=== PATIENT | male | born 1985 | race Caucasian/White ===

== ENCOUNTER → 2016-06-08 | Outpatient (CLI) | payer OTHER ==
[~2016-06-08] MED LIST: GABA300C3 PO
--- NOTE | 2016-06-15 01:55 | ECWPNPC ---
PATIENT NAME: ALEX GLYNN : 1985 GENDER: MALE VISIT DATE: 06/08/2016 DISCHARGE DATE: 06/08/16 1313 VISIT LOCKED DATE TIME: PHYSICIAN: BECKY FUNEZ RESOURCE: BECKY FUNEZ REASON FOR APPOINTMENT 1. TESITCULAR PAIN HISTORY OF PRESENT ILLNESS HISTORY OF PRESENT ILLNESS: PAIN THE PATIENT DESCRIBES THE PAIN... 30 YEAR OLD MALE PATIENT WITH HISTORY OF CHRONIC TESTICULAR PAIN. PATIENT DESCRIBES THE PAIN SHARP, THROBBING, SORE, WITH THE PAIN COMING AND GOING WITH A PAIN SCORE OF 3/10. PATIENT IS CURRENTLY USING GABAPENTIN TO HELP WITH THE NEUROPATHIC PAIN IN THE GROIN. MR. GLYNN REPORTS WANTING TO MOVE FORWARD WITH THE DCS TRIAL FAST POSSIBLE. PATIENT REPORTS HAVING BOTH MRI'S AND PSYCHOLOGICAL EVALUATION DONE FOR THE TRIAL TO BE DONE. PATIENT DENIES UNEXPLAINABLE WEIGHT LOSS, FEVER, CHILLS, NEW CHANGES ON HIS URINARY OR BOWEL CONTROL. FALL RISK SCREENING: SCREENING :NO FALLS IN THE PAST YEAR CURRENT MEDICATIONS TAKING GABAPENTIN 400 MG TABLET 1 CAPSULE ORALLY FOUR TIMES DAILY FOR PAIN MDD4 NOT-TAKING IBUPROFEN 800 MG TABLET 1 TABLET ORALLY THREE TIMES A DAY, NOTES: PRN NOT-TAKING FISH OIL 1000 MG CAPSULE 1 CAPSULE ORALLY DAILY NOT-TAKING LEVAQUIN 500 MG TABLET 1 TABLET ORALLY ONCE A DAY NOT-TAKING CELEBREX 100 MG CAPSULE 1 CAPSULE ORALLY TWICE A DAY NOT-TAKING SUMATRIPTAN SUCCINATE 25 MG TABLET ORALLY NOT-TAKING TYLENOL 325 MG TABLET 1 TABLET NEEDED ORALLY EVERY 6 HRS NOT-TAKING KETOROLAC TROMETHAMINE 10 MG TABLET 1 TABLET NEEDED ORALLY EVERY 6 HRS NOT-TAKING ZANAFLEX 4 MG TABLET 1 TABLET NEEDED ORALLY EVERY 8 HRS MEDICATION LIST REVIEWED AND RECONCILED WITH THE PATIENT PAST MEDICAL HISTORY EPIDIDYMITIS ALLERGIES PENICILLIN (FOR ALLERGIES USE ONLY): HIVES: ALLERGY BEER: VOMITING/HIVES: ALLERGY SURGICAL HISTORY TONSILLECTOMY ORAL SURGERY 1999 TESTICULAR REAPAIR 2007 APPENDIX REMOVED 2007 VASECTOMY 2011 FAMILY HISTORY NO FAMILY HISTORY DOCUMENTED. SOCIAL HISTORY TOBACCO USE ARE YOU A:CURRENT SMOKER LEARNING BARRIERS / SPECIAL NEEDS ORIENTED TO PLAN OF CARE: PATIENT, PAIN MANAGEMENT PATIENT, ORIENTED TO PLAN OF CARE: PATIENT, PAIN MANAGEMENT PATIENT. NEW PATIENT PAIN DIARY TODAY'S VISITNOTES FROM 0-10, WHAT LEVEL IS YOUR PAIN TODAY?0 PAIN CLINIC PFS, CLERGY, PUBLIC HEALTH REFERRALS PFS REFERRAL NEEDED?NO CLERGY REFERRAL NEEDED?NO PUBLIC HEALTH REFERRAL NEEDED?NO WAS THE PROVIDER NOTIFIED OF ANY PERTINENT INFO?NO PFS REFERRAL NEEDED?NO CLERGY REFERRAL NEEDED?NO PUBLIC HEALTH REFERRAL NEEDED?NO WAS THE PROVIDER NOTIFIED OF ANY PERTINENT INFO?NO HOSPITALIZATION/MAJOR DIAGNOSTIC PROCEDURE SURGERY RELATED TESTICLE PAIN 09/2015 REVIEW OF SYSTEMS CONSTITUTIONAL: ANY CHANGE IN YOUR MEDICAL CONDITION? NO . CHILLS NO . FEVER NO . INFECTION: DO YOU HAVE NEW INFECTIONS? NO . DO YOU HAVE HISTORY OF MRSA? NO . MUSCULOSKELETAL: ANY NEW PATTERNS OF PAIN OR NUMBNESS? NO . GASTROENTEROLOGY: ANY NEW CHANGE IN BOWEL CONTROL? NO . GENITOURINARY: ANY NEW CHANGE IN BLADDER CONTROL? NO . IS THERE A CHANCE YOU COULD BE ? NO . HEMATOLOGY/LYMPH: DO YOU TAKE ANY BLOOD THINNERS? (FOR EXAMPLE- COUMADIN, PLAVIX, AGGRENOX, PLATEL, PRADAXA, OR XARELTO) NO . WHEN WAS YOUR LAST DOSE? DATE: TIME: . NEUROLOGY: HAVE YOU FALLEN IN THE PAST 6 MONTHS? NO . ANY NEW EXTREMITY NUMBNESS OR WEAKNESS? NO . CARDIOLOGY: DO YOU HAVE A PACEMAKER OR DEFIBRILLATOR? NO . RESPIRATORY: HAVE YOU BEEN SICK IN THE PAST WEEK? NO . FEVER NO . FLU LIKE SYMPTOMS? NO . COUGH NO . INTEGUMENTARY: DO YOU HAVE ANY RASHES OR OPEN SORES? NO . ALLERGIC/IMMUNO: ARE YOU ALLERGIC TO SHELLFISH OR IV DYE? NO . ANY NEW ALLERGIES? NO . PSYCHIATRIC: DO YOU HAVE THOUGHTS OF HURTING YOURSELF OR SOMEONE ELSE? NO . ARE YOU ABUSED, NEGLECTED, OR IN AN UNSAFE ENVIRONMENT? NO . ENDOCRINOLOGY: ARE YOU DIABETIC? NO . OTHER: DO YOU NEED ANY PRESCRIPTIONS? NO . IF YES, PLEASE LIST: ____ . ANY NEW PROBLEMS WITH YOUR MEDICATIONS? NO . WHEN DID YOU LAST EAT? ____ . WHEN DID YOU LAST DRINK? ____ . WHAT DID YOU LAST DRINK? ____ . NAME OF PERSON DRIVING YOU HOME? ____ . DO YOU HAVE ANY OTHER QUESTIONS OR CONCERNS NO . REVIEWED BY: PROVIDER: BECKY FUNEZ MD . VITAL SIGNS WT 170 LBS, HT 69 IN, BMI 25.10 INDEX, BP 151/82 MM HG, HR 74 /MIN, RR 16 /MIN, TEMP 98.6 F, OXYGEN SAT % 99, NA INITIALS TL 1117, REVIEWED BY: MICAELA. EXAMINATION : PATIENT IS ALERT O X 3 AND COOPERATIVE. RIGHT TESTICLE NOT SENSITIVE TO TOUCH BUT HYPERPATHIA WHEN PRESSURE APPLIED. SCAR TISSUE PRESENT IN TESTICLES FROM SURGERY. TENDERNESS IN THE LOWER BACK AND PARASPSINAL MUSCLE GROUP. LEFT LEG WEAKER THEN THE RIGHT AT EXTENSION AND FLEXION. LUNGS CLEAR. MRI OF THE LUMBAR AND THORACIC SPINE SHOW ENOUGH ROOM FOR THE LEADS TO PASS THROUGH. 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 TREATMENT NEURALGIA AND NEURITIS, UNSPECIFIED NOTES: WE DISCUSSED SEVERAL ISSUES WITH MR. GLYNN'S PAIN MANAGEMENT CASE. AT THIS TIME THE PATIENT WILL CONTINUE WITH THE SAME MEDICATION REGIME BEFORE. PATIENT IS AWARE TO REDUCE MEDICATION BEFORE TRIAL AND NOT TO USE FISH OIL. PATIENT HAS ADEQUATE ROOM IN THE SPINE FOR THE LEADS AND THE PSYCHOLOGICAL EVALUATION CAME BACK WITH APPROVAL. PATIENT WILL HAVE TRIAL DONE ON 07/02/16. WE DISCUSSED IN DETAIL WHAT TO EXPECT DURING THE TRIAL AND PATIENT WAS ADVISED TO CALL WITH ANYMORE QUESTIONS OR CONCERNS ABOUT THE TRIAL. OTHERS REFILL GABAPENTIN TABLET, 400 MG, 1 CAPSULE, ORALLY, FOUR TIMES DAILY FOR PAIN MDD4, 30 DAYS, 120, REFILLS 2 START CLINDAMYCIN HCL CAPSULE, 150 MG, 1 CAPSULES, ORALLY, THREE TIMES DAILY, 10 DAYS, 30, REFILLS 0 PROCEDURE CODES G8427 DOC MEDS VERIFIED W/PT OR RE G8730 PAIN ASSESS POS TOOL F/U PLAN DOC FOLLOW UP LEAD PULL AFTER TRIAL ELECTRONICALLY SIGNED BY BECKY FUNEZ MD ON 06/13/2016 AT 09:00 AM EST DISCLAIMER : THIS IS A VISIT SUMMARY EXTRACTED FROM THE [employer] CHART. IT IS NOT A COPY OF THE [employer] PROGRESS NOTE. MTDD
== END ==
LOC: M PAIN 10:40
PROVIDERS: ATTEND Anesthesiology
DX: M79.2 Neuralgia and neuritis, unspecified (principal); Z79.899 Other long term (current) drug therapy

== ENCOUNTER 2016-07-02 07:37 | Day surgery (SDC) | payer OTHER ==
[~2016-07-02] VITALS: Ht 175.3 cm; Wt 77.1 kg
[2016-07-02] MEDS ORDERED: VANCOMYCIN HCL 1,000 MG, VIAL MATE ADAPTER 1 EACH in D5W 250 ML IV ONE (07:45)
[2016-07-02] MEDS ORDERED: LR 1,000 ML IV SCH ×2 (07:45→11:15)
[2016-07-02] MEDS ORDERED: GABA-279 PO (08:15)
[2016-07-02] MEDS ORDERED: fentaNYL 100 MCG/2 ML INJECTION (J3010) As Ordered ONE (08:17)
[2016-07-02] MEDS ORDERED: PROPOFOL 200 MG/20 ML VIAL As Ordered ONE (08:17)
[2016-07-02] MEDS ORDERED: LIDOCAINE 2% INJ 100 MG/5 ML SDV (FOR ANES.) As Ordered ONE (08:17)
[2016-07-02] MEDS ORDERED: MIDAZOLAM INJ 2 MG/2 ML VIAL (J2250) As Ordered ONE (08:17)
[2016-07-02] MEDS ORDERED: LIDOCAINE W/EPINEPHRINE 1% 20ML VIAL As Ordered ONE (09:09)
[2016-07-02] MEDS ORDERED: diphenhydrAMINE INJ 50MG/ML VIAL (J1200) As Ordered ONE (09:29)
[2016-07-02] MEDS ORDERED: dexameTHASONE 4 MG/ML 1ML VIAL (J1100) As Ordered ONE (09:29)
[2016-07-02] MEDS ORDERED: LIDOCAINE W/EPINEPHRINE 1% 20ML VIAL XX ONE (09:55)
[2016-07-02] MEDS ORDERED: NORCO, ANEXSIA 5/325MG TABLET (HYDROcodone/ACETAMINOPHEN) PO PRN (11:00)
[2016-07-02] MEDS: NORCO, ANEXSIA 5/325MG TABLET (HYDROcodone/ACETAMINOPHEN) PO PRN ×4 (11:15→22:29)
[2016-07-02] MEDS: fentaNYL 100 MCG/2 ML INJECTION (J3010) IV PRN ×4 (11:15→11:30)
[2016-07-02 12:10] VITALS: BP 122/71
[2016-07-02 12:40] VITALS: BP 128/76
--- NOTE | 2016-07-02 13:37 | REP ---
Partial thoracic spine series: Nine views. History: Fluoroscopy for dorsal column stimulator placement. 2 minutes 59 seconds of fluoroscopy time is reported. Findings: Nine views of the thoracolumbar junction document dorsal column stimulator lead positioning and placement. Signed by Fuad Sifuentes MD 07/02/2016 03:17 P
[2016-07-02 13:40] VITALS: BP 125/70
[2016-07-02 15:40] VITALS: BP 131/62
[2016-07-02] MEDS: GABAPENTIN 300 MG CAP PO SCH ×2 (16:11→20:21)
[2016-07-02 16:40] VITALS: BP 122/56
[2016-07-02] MEDS: diphenhydrAMINE INJ 50MG/ML VIAL (J1200) IV SCH (16:56)
[2016-07-02] MEDS: VANCOMYCIN HCL 1,000 MG, VIAL MATE ADAPTER 1 EACH in D5W 250 ML IV SCH (17:30)
[2016-07-02 20:00] VITALS: BP 102/59
[2016-07-03] VITALS: BP 119/56
[2016-07-03] MEDS: diphenhydrAMINE INJ 50MG/ML VIAL (J1200) IV SCH (00:50)
[2016-07-03] MEDS: VANCOMYCIN HCL 1,000 MG, VIAL MATE ADAPTER 1 EACH in D5W 250 ML IV SCH (01:13)
[2016-07-03 04:00] VITALS: BP 108/59
[2016-07-03 08:00] VITALS: BP 155/68
[2016-07-03] MEDS: GABAPENTIN 300 MG CAP PO SCH (08:42)
--- NOTE | 2016-07-16 10:32 | ROPAIN ---
DATE OF PROCEDURE: 07/02/2016 PREOPERATIVE DIAGNOSIS: Bilateral ilioinguinal neuralgia and testicular pain. POSTOPERATIVE DIAGNOSIS: Bilateral ilioinguinal neuralgia and testicular pain. PROCEDURE: Spinal column stimulator trial. SURGEON: Dr. Jerman Landers JAILOR: ANESTHESIA: Local with monitored anesthesia care. PREOPERATIVE NOTE: Mr. Guevara is a 30-year-old male patient with history of pain in the inguinal region and the testicular area. The patient had received medication management and ulnar interventions. The pain has persisted. The patient wanted to do a spinal column stimulator trial, the reason why he is in the operating room. I went through the risks, alternatives and benefits associated with the procedure and the patient expressed that he would like to proceed. The patient denies unexplainable weight loss, fever, chills, or changes urinary or bowel control. DESCRIPTION OF PROCEDURE: After consent was taken, the patient was brought to the procedure room and placed in the prone position. The thoracolumbar area was cleaned with Betadine solution and draped aseptically. The procedure was done under sterile conditions. Under fluoroscopic guidance, target was selected at the intralaminar level of L1-2. Lidocaine was used to numb the skin and the subcutaneous tissue below it. Epimed Tuohy needle was advanced until the right lamina of L2 was reached. Then, by the loss of resistance technique, the epidural space was reached 7 cm deep into the skin by the loss of resistance technique. Then, a 16 contact lead from [employer] was advanced in the posterior and medial aspect of the epidural space until we reached the area of T8-9. The decision was made to place a second lead. On this occasion, the target was selected at the interlaminar level of L2-3. Lidocaine was used to numb the skin and the subcutaneous tissue below it. A second epidural needle from [employer] was advanced until the left lamina of L3 was reached. Then, by the loss of resistance technique the epidural space was reached 7 cm deep into the skin by the loss of resistance technique. A second 16 contact lead from [employer] was advanced parallel to the first lead, also at the level of T8-9. When proper position of the leads was achieved, we attached extension cables to the leads which were attached to the computer system from [employer] and we started to do programming. We changed the position of the leads based on the patient's response. We changed the contact used. We checked impedance and changed voltage. The final position of the leads were at the level of T8, T9 and T10. They were placed in the posterior medial aspect of the epidural space. This was a 30 minutes screen for programming. Then, the extension cables were removed. The stylets were removed. The leads were attached to the skin with Steri-Strips and the area was covered with 4x4 and Tegaderms. The patient was sent to the recovery room. There were no complications during the procedure.
== END 2016-07-03 08:55 | disposition home or self-care (01) ==
LOC: M SDC 07:37 → M PED 11:44 → M SDC 07-03 08:55
PROVIDERS: ATTEND Anesthesiology
DX: R10.2 Pelvic and perineal pain (principal); N50.819 Testicular pain, unspecified; K21.9 Gastro-esophageal reflux disease without esophagitis; G89.29 Other chronic pain; G47.9 Sleep disorder, unspecified; R06.83 Snoring; F41.9 Anxiety disorder, unspecified; R51 Headache; F17.290 Nicotine dependence, other tobacco product, uncomplicated; Z88.0 Allergy status to penicillin; Z91.018 Allergy to other foods
CPT/HCPCS: 63650; 77002; 96374; 96375; C1897; J1100; J1200; J2250; J3010; J3370

== ENCOUNTER → 2016-07-06 | Outpatient (CLI) | payer OTHER ==
[~2016-07-06] MED LIST changes: +GABA-279 PO
--- NOTE | 2016-07-06 12:24 | REP ---
Partial lumbar spine and thoracic spine series: Six views. History: Dorsal column stimulator lead manipulation. 3 seconds of fluoroscopy time is reported. Findings: A sequence of six fluoroscopically obtained. Last image hold spot radiographs of the thoracolumbar spine document thoracic and lumbar dorsal column stimulator lead placement. Signed by Fuad Sifuentes MD 07/06/2016 07:24 P
--- NOTE | 2016-07-12 00:13 | ECWPNPC ---
PATIENT NAME: ALEX GLYNN : 1985 GENDER: MALE VISIT DATE: 07/06/2016 DISCHARGE DATE: 07/06/16 1111 VISIT LOCKED DATE TIME: PHYSICIAN: BECKY FUNEZ RESOURCE: BECKY FUNEZ REASON FOR APPOINTMENT 1. GROIN PAIN HISTORY OF PRESENT ILLNESS HISTORY OF PRESENT ILLNESS: PAIN THE PATIENT DESCRIBES THE PAIN... 30 YEAR OLD MALE PATIENT WITH HISTORY OF CHRONIC GROIN PAIN. PATIENT DESCRIBES THE PAIN SORE WITH A PAIN SCORE OF 1/10. PATIENT STARTED THE DCS ON SATURDAY AND STATES THAT HE HAS HAD 90% RELIEF FROM THE DCS TRIAL AT THIS TIME. MR. GLYNN STATES THAT HE IS VERY HAPPY WITH THE AMOUNT OF RELIEF THAT HE HAS RECEIVED AND WOULD LIKE TO MOVE FORWARD WITH THE PERMANENT AT THIS TIME. PATIENT USED PAIN MEDICATION THE FOLLOWING DAY DUE TO POST OP PAIN BUT DID NOT CONTINUE TO USE IT. PATIENT DENIES UNEXPLAINABLE WEIGHT LOSS, FEVER, CHILLS, NEW CHANGES ON HER URINARY OR BOWEL CONTROL. FALL RISK SCREENING: SCREENING :NO FALLS IN THE PAST YEAR CURRENT MEDICATIONS TAKING GABAPENTIN 400 MG TABLET 1 CAPSULE ORALLY FOUR TIMES DAILY FOR PAIN MDD4, NOTES: 1 WEEK AGO TAKING CLINDAMYCIN HCL 150 MG CAPSULE 1 CAPSULES ORALLY THREE TIMES DAILY, NOTES: NEVER TOOK TAKING HYDROCODONE-ACETAMINOPHEN 5-325 MG TABLET 1 TO 2 TABLET NEEDED ORALLY FOR PAIN EVERY 6 HRS MDD6, NOTES: 07/03 10PM NOT-TAKING IBUPROFEN 800 MG TABLET 1 TABLET ORALLY THREE TIMES A DAY, NOTES: PRN NOT-TAKING FISH OIL 1000 MG CAPSULE 1 CAPSULE ORALLY DAILY NOT-TAKING LEVAQUIN 500 MG TABLET 1 TABLET ORALLY ONCE A DAY NOT-TAKING CELEBREX 100 MG CAPSULE 1 CAPSULE ORALLY TWICE A DAY NOT-TAKING SUMATRIPTAN SUCCINATE 25 MG TABLET ORALLY NOT-TAKING TYLENOL 325 MG TABLET 1 TABLET NEEDED ORALLY EVERY 6 HRS NOT-TAKING KETOROLAC TROMETHAMINE 10 MG TABLET 1 TABLET NEEDED ORALLY EVERY 6 HRS NOT-TAKING ZANAFLEX 4 MG TABLET 1 TABLET NEEDED ORALLY EVERY 8 HRS MEDICATION LIST REVIEWED AND RECONCILED WITH THE PATIENT PAST MEDICAL HISTORY EPIDIDYMITIS ALLERGIES PENICILLIN (FOR ALLERGIES USE ONLY): HIVES: ALLERGY BEER: VOMITING/HIVES: ALLERGY VANCOMYCIN HCL: RED MAN SYNDROME: SIDE EFFECTS SURGICAL HISTORY TONSILLECTOMY 1988 ORAL SURGERY 1999 TESTICULAR REPAIR 2007 APPENDIX REMOVED 2007 VASECTOMY 2011 TEMPORARY PLACEMENT OF DCS 07/02/2016 FAMILY HISTORY NO FAMILY HISTORY DOCUMENTED. SOCIAL HISTORY GENERAL: TOBACCO USE ARE YOU A:CURRENT SMOKER PATIENT COUNSELED ON THE DANGERS OF TOBACCO USE AND URGED TO QUIT:07/06/2016 ARE YOU INTERESTED IN QUITTING?NOT READY TO QUIT COUNSELED THE PATIENT ON SMOKING EFFECTS, EDUCATION [id number]/03/2017 LEARNING BARRIERS / SPECIAL NEEDS ORIENTED TO PLAN OF CARE: PATIENT, PAIN MANAGEMENT PATIENT, ORIENTED TO PLAN OF CARE: PATIENT, PAIN MANAGEMENT PATIENT. NEW PATIENT PAIN DIARY TODAY'S VISITNOTES FROM 0-10, WHAT LEVEL IS YOUR PAIN TODAY?0 PAIN CLINIC PFS, CLERGY, PUBLIC HEALTH REFERRALS PFS REFERRAL NEEDED?NO CLERGY REFERRAL NEEDED?NO PUBLIC HEALTH REFERRAL NEEDED?NO WAS THE PROVIDER NOTIFIED OF ANY PERTINENT INFO?NO PFS REFERRAL NEEDED?NO CLERGY REFERRAL NEEDED?NO PUBLIC HEALTH REFERRAL NEEDED?NO WAS THE PROVIDER NOTIFIED OF ANY PERTINENT INFO?NO HOSPITALIZATION/MAJOR DIAGNOSTIC PROCEDURE 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 NO . CHILLS NO . FEVER NO . INFECTION: DO YOU HAVE NEW INFECTIONS? NO . DO YOU HAVE HISTORY OF MRSA? NO . MUSCULOSKELETAL: ANY NEW PATTERNS OF PAIN OR NUMBNESS? NO . GASTROENTEROLOGY: ANY NEW CHANGE IN BOWEL CONTROL? NO . GENITOURINARY: ANY NEW CHANGE IN BLADDER CONTROL? NO . IS THERE A CHANCE YOU COULD BE ? NO . HEMATOLOGY/LYMPH: DO YOU TAKE ANY BLOOD THINNERS? (FOR EXAMPLE- COUMADIN, PLAVIX, AGGRENOX, PLATEL, PRADAXA, OR XARELTO) NO . WHEN WAS YOUR LAST DOSE? DATE: TIME: . NEUROLOGY: HAVE YOU FALLEN IN THE PAST 6 MONTHS? NO . ANY NEW EXTREMITY NUMBNESS OR WEAKNESS? NO . CARDIOLOGY: DO YOU HAVE A PACEMAKER OR DEFIBRILLATOR? NO . RESPIRATORY: HAVE YOU BEEN SICK IN THE PAST WEEK? NO . FEVER NO . FLU LIKE SYMPTOMS? NO . COUGH NO . INTEGUMENTARY: DO YOU HAVE ANY RASHES OR OPEN SORES? NO . ALLERGIC/IMMUNO: ARE YOU ALLERGIC TO SHELLFISH OR IV DYE? NO . ANY NEW ALLERGIES? NO . PSYCHIATRIC: DO YOU HAVE THOUGHTS OF HURTING YOURSELF OR SOMEONE ELSE? NO . ARE YOU ABUSED, NEGLECTED, OR IN AN UNSAFE ENVIRONMENT? NO . ENDOCRINOLOGY: ARE YOU DIABETIC? NO . OTHER: DO YOU NEED ANY PRESCRIPTIONS? NO . IF YES, PLEASE LIST: ____ . ANY NEW PROBLEMS WITH YOUR MEDICATIONS? NO . WHEN DID YOU LAST EAT? ____ . WHEN DID YOU LAST DRINK? ____ . WHAT DID YOU LAST DRINK? ____ . NAME OF PERSON DRIVING YOU HOME? ____ . DO YOU HAVE ANY OTHER QUESTIONS OR CONCERNS NO . REVIEWED BY: PROVIDER: BECKY FUNEZ MD . VITAL SIGNS WT 175 LBS, HT 69 IN, BMI 25.84 INDEX, BP 141/72 MM HG, HR 78 /MIN, RR 16 /MIN, TEMP 98.5 F, OXYGEN SAT % 96, SAFE IN ENV? (Y/N) Y, NA INITIALS TL 0935, REVIEWED BY: DS. EXAMINATION : PATIENT IS ALERT O X 3 AND COOPERATIVE. RIGHT TESTICLE NOT SENSITIVE TO TOUCH BUT HYPERPATHIA WHEN PRESSURE APPLIED. SCAR TISSUE PRESENT IN TESTICLES FROM SURGERY. TENDERNESS IN THE LOWER BACK AND PARASPINAL MUSCLE GROUP. LEFT LEG WEAKER THEN THE RIGHT AT EXTENSION AND FLEXION. LEADS WERE PULLED OUT INTACT. ASSESSMENTS NEURALGIA AND NEURITIS, UNSPECIFIED - M79.2 (PRIMARY) TREATMENT NEURALGIA AND NEURITIS, UNSPECIFIED NOTES: WE DISCUSSED SEVERAL ISSUES WITH MR. GLYNN'S PAIN MANAGEMENT CASE. AT THIS TIME THE PATIENT WOULD LIKE TO MOVE FORWARD WITH THE PERMANENT DCS. PATIENT REPORTS HAVING OVER 90% RELIEF FROM THE TRIAL AND REPORTS BEING VERY HAPPY WITH THE RELIEF HE HAS GOTTEN. WE DISCUSSED THE OPTIONS THE PATIENT HAS FOR A PERMANENT DCS AND AT THIS TIME HE WOULD LIKE TO MOVE FORWARD WITH THE PERCUTANEOUS LEADS. AT THIS TIME I WOULD REQUEST AUTHORIZATION FOR THE PERMANENT DCS. PATIENT WILL RETURN TO THE CLINIC IN 3 WEEKS TO SEE WHAT PROGRESS WAS MADE FOR THE PERMANENT. INSTRUCTIONS WERE GIVEN, QUESTIONS WERE ANSWERED, PATIENT REPORTS UNDERSTANDING AND AGREES WITH THE PLAN. I, MAURY VAZQUEZ, DOCUMENTED THE ABOVE INFORMATION ACTING A SCRIBE FOR DR. FUNEZ. I HAVE REVIEWED THE ABOVE DOCUMENT, WRITTEN BY MAURY EDMONDS AND I VERIFY THAT IT IS ACCURATE. DIAGNOSTIC IMAGING [facility] FLUORO GUIDANCE (PAIN)[id number] PREVENTIVE MEDICINE PAIN CLINIC TEACHING: PROCEDURE TEACHING POST REMOVAL DORSAL COLUMN STIMULATOR TRIAL LEAD INSTRUCTIONS REVIEWED WITH PT. VERBALZIED UNDERSTANDING.. PROCEDURE CODES FA211 ESTABILISHED PATIENT [facility] CHARGE FOLLOW UP 3 WEEKS ELECTRONICALLY SIGNED BY BECKY FUNEZ MD ON 07/11/2016 AT 07:33 PM EST DISCLAIMER : THIS IS A VISIT SUMMARY EXTRACTED FROM THE [employer] CHART. IT IS NOT A COPY OF THE [employer] PROGRESS NOTE. ELINA
== END ==
LOC: M PAIN 09:00
PROVIDERS: ATTEND Anesthesiology
DX: Z09 Encounter for follow-up examination after completed treatment for conditions other than malignant neoplasm (principal); G89.29 Other chronic pain; M79.2 Neuralgia and neuritis, unspecified; Z88.0 Allergy status to penicillin; Z88.8 Allergy status to other drugs, medicaments and biological substances; Z91.09 Other allergy status, other than to drugs and biological substances; F17.200 Nicotine dependence, unspecified, uncomplicated; Z79.891 Long term (current) use of opiate analgesic; Z79.899 Other long term (current) drug therapy; Z96.89 Presence of other specified functional implants

== ENCOUNTER → 2016-08-03 | Outpatient (CLI) | payer OTHER | LOC: M PAIN 09:40 | PROVIDERS: ATTEND Anesthesiology | DX: Z09 Encounter for follow-up examination after completed treatment for conditions other than malignant neoplasm (principal); G89.29 Other chronic pain; M79.2 Neuralgia and neuritis, unspecified; R10.30 Lower abdominal pain, unspecified; Z79.891 Long term (current) use of opiate analgesic; Z79.899 Other long term (current) drug therapy; Z88.0 Allergy status to penicillin; Z91.048 Other nonmedicinal substance allergy status; Z88.1 Allergy status to other antibiotic agents ==

== ENCOUNTER → 2016-09-10 | Outpatient (CLI) | payer OTHER ==
[~2016-09-10] MED LIST changes: +GABA-282 PO; -GABA300C3 PO
--- NOTE | 2016-09-18 00:40 | ECWPNPC ---
PATIENT NAME: ALEX GLYNN : 1985 GENDER: MALE VISIT DATE: 09/10/2016 DISCHARGE DATE: 09/10/16 1445 VISIT LOCKED DATE TIME: PHYSICIAN: BECKY FUNEZ RESOURCE: BECKY FUNEZ REASON FOR APPOINTMENT 1. PRE-OP HISTORY OF PRESENT ILLNESS HISTORY OF PRESENT ILLNESS: PAIN THE PATIENT DESCRIBES THE PAIN... 31 YEAR OLD MALE PATIENT WITH HISTORY OF CHRONIC TESTICULAR PAIN. PATIENT DESCRIBES THE PAIN ACHING, THROBBING, AND IT COMES AND GOES WITH A PAIN SCORE OF 3/10 ON TODAY'S VISIT. PATIENT WAS INITIALLY SCHEDULED TO HAVE THE DCS PERMANENT LAST MONTH, BUT DUE TO HAVING STREP THROAT, IT HAS BEEN RESCHEDULED TO THIS MONTH. PATIENT RECEIVED THE DCS TRIAL ON 07/02/16 WITH ADEQUATE RESULTS AND REPORTS THAT HE WOULD LIKE TO MOVE FORWARD WITH THE DCS PERMANENT. PATIENT REPORTS THAT HE IS ALLERGIC TO PENICILLIN IT CAUSES HIVES AND ITCHINESS. PATIENT DENIES UNEXPLAINABLE WEIGHT LOSS, FEVER, CHILLS, NEW CHANGES ON HIS URINARY OR BOWEL CONTROL. FALL RISK SCREENING: SCREENING :NO FALLS IN THE PAST YEAR CURRENT MEDICATIONS TAKING GABAPENTIN 400 MG TABLET 1 CAPSULE ORALLY FOUR TIMES DAILY FOR PAIN MDD4, NOTES: 1 WEEK AGO TAKING OXYCODONE HCL 5 MG TABLET 1 TABLET ORALLY (TO BE USE AFTER THE OPERATION) EVERY 4 HRS PRN FOR PAIN MDD6 TAKING TYLENOL WITH CODEINE #3 300-30 MG TABLET 1 TABLET NEEDED ORALLY EVERY 6 HRS NOT-TAKING HYDROCODONE-ACETAMINOPHEN 5-325 MG TABLET 1 TO 2 TABLET NEEDED ORALLY FOR PAIN EVERY 6 HRS MDD6, NOTES: 07/03 10PM NOT-TAKING CLINDAMYCIN HCL 150 MG CAPSULE 1 CAPSULES ORALLY THREE TIMES DAILY, NOTES: NEVER TOOK NOT-TAKING IBUPROFEN 800 MG TABLET 1 TABLET ORALLY THREE TIMES A DAY, NOTES: PRN NOT-TAKING FISH OIL 1000 MG CAPSULE 1 CAPSULE ORALLY DAILY NOT-TAKING LEVAQUIN 500 MG TABLET 1 TABLET ORALLY ONCE A DAY NOT-TAKING CELEBREX 100 MG CAPSULE 1 CAPSULE ORALLY TWICE A DAY NOT-TAKING SUMATRIPTAN SUCCINATE 25 MG TABLET ORALLY NOT-TAKING TYLENOL 325 MG TABLET 1 TABLET NEEDED ORALLY EVERY 6 HRS NOT-TAKING KETOROLAC TROMETHAMINE 10 MG TABLET 1 TABLET NEEDED ORALLY EVERY 6 HRS NOT-TAKING ZANAFLEX 4 MG TABLET 1 TABLET NEEDED ORALLY EVERY 8 HRS MEDICATION LIST REVIEWED AND RECONCILED WITH THE PATIENT PAST MEDICAL HISTORY EPIDIDYMITIS ALLERGIES PENICILLIN (FOR ALLERGIES USE ONLY): HIVES: ALLERGY BEER: VOMITING/HIVES: ALLERGY VANCOMYCIN HCL: RED MAN SYNDROME: SIDE EFFECTS SURGICAL HISTORY TONSILLECTOMY 1988 ORAL SURGERY 1999 TESTICULAR REPAIR 2007 APPENDIX REMOVED 2007 VASECTOMY 2011 TEMPORARY PLACEMENT OF DCS 07/02/2016 FAMILY HISTORY NO FAMILY HISTORY DOCUMENTED. SOCIAL HISTORY GENERAL: PAIN CLINIC PFS, CLERGY, PUBLIC HEALTH REFERRALS CLERGY REFERRAL NEEDED?NO WAS THE PROVIDER NOTIFIED OF ANY PERTINENT INFO?NO PFS REFERRAL NEEDED?NO PUBLIC HEALTH REFERRAL NEEDED?NO PATIENT: ____. HOSPITALIZATION/MAJOR DIAGNOSTIC PROCEDURE 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 NO . CHILLS NO . FEVER NO . INFECTION: DO YOU HAVE NEW INFECTIONS? NO . DO YOU HAVE HISTORY OF MRSA? NO . MUSCULOSKELETAL: ANY NEW PATTERNS OF PAIN OR NUMBNESS? NO . GASTROENTEROLOGY: ANY NEW CHANGE IN BOWEL CONTROL? NO . GENITOURINARY: ANY NEW CHANGE IN BLADDER CONTROL? NO . IS THERE A CHANCE YOU COULD BE ? NO . HEMATOLOGY/LYMPH: DO YOU TAKE ANY BLOOD THINNERS? (FOR EXAMPLE- COUMADIN, PLAVIX, AGGRENOX, PLATEL, PRADAXA, OR XARELTO) NO . WHEN WAS YOUR LAST DOSE? DATE: TIME: . NEUROLOGY: HAVE YOU FALLEN IN THE PAST 6 MONTHS? NO . ANY NEW EXTREMITY NUMBNESS OR WEAKNESS? NO . CARDIOLOGY: DO YOU HAVE A PACEMAKER OR DEFIBRILLATOR? NO . RESPIRATORY: HAVE YOU BEEN SICK IN THE PAST WEEK? NO . FEVER NO . FLU LIKE SYMPTOMS? NO . COUGH NO . INTEGUMENTARY: DO YOU HAVE ANY RASHES OR OPEN SORES? NO . ALLERGIC/IMMUNO: ARE YOU ALLERGIC TO SHELLFISH OR IV DYE? NO . ANY NEW ALLERGIES? NO . PSYCHIATRIC: DO YOU HAVE THOUGHTS OF HURTING YOURSELF OR SOMEONE ELSE? NO . ARE YOU ABUSED, NEGLECTED, OR IN AN UNSAFE ENVIRONMENT? NO . ENDOCRINOLOGY: ARE YOU DIABETIC? NO . OTHER: DO YOU NEED ANY PRESCRIPTIONS? NO . IF YES, PLEASE LIST: ____ . ANY NEW PROBLEMS WITH YOUR MEDICATIONS? NO . WHEN DID YOU LAST EAT? ____ . WHEN DID YOU LAST DRINK? ____ . WHAT DID YOU LAST DRINK? ____ . NAME OF PERSON DRIVING YOU HOME? ____ . DO YOU HAVE ANY OTHER QUESTIONS OR CONCERNS NO . REVIEWED BY: PROVIDER: BECKY FUNEZ MD . VITAL SIGNS WT 185.6 LBS, HT 69 IN, BMI 27.41 INDEX, BP 133/75 MM HG, HR 82 /MIN, RR 16 /MIN, TEMP 98.6 F, OXYGEN SAT % 96%, SAFE IN ENV? (Y/N) YES, NA INITIALS SC13:[id number], REVIEWED BY: DESIREE. EXAMINATION : PATIENT IS ALERT O X 3 AND COOPERATIVE. RIGHT TESTICLE NOT SENSITIVE TO TOUCH BUT HYPERPATHIA WHEN PRESSURE APPLIED. SCAR TISSUE PRESENT IN TESTICLES FROM SURGERY. TENDERNESS IN THE LOWER BACK AND PARASPINAL MUSCLE GROUP. LEFT LEG WEAKER THEN THE RIGHT AT EXTENSION AND FLEXION. 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 TREATMENT UNSPECIFIED MONONEUROPATHY OF UNSPECIFIED LOWER LIMB NOTES: WE DISCUSSED SEVERAL ISSUES WITH MR. GLYNN'S PAIN MANAGEMENT CASE. AT THIS TIME THE PATIENT WILL CONTINUE WITH THE SAME MEDICATION REGIME BEFORE. PATIENT HAD ADEQUATE RELIEF FROM THE TRIAL AND STATES HE WOULD LIKE TO MOVE FORWARD WITH THE PERMANENT. PATIENT WILL FILL OUT THE PER OPERATION PAPERWORK TODAY FOR THE SURGERY. AT THIS TIME THE PATIENT WILL RECEIVE THE PERMANENT DCS ON 09/24/16. PATIENT IS AWARE HE WILL NEED TO COME BACK TO THE CLINIC ONE WEEK AFTER FOR A CHECK UP AND THEN WILL BE EVALUATED AGAIN A MONTH AFTER. WE DISCUSSED THE RISKS, BENEFITS, AND ALTERNATIVES TO THE DCS AND THE PATIENT WOULD LIKE TO MOVE FORWARD AT THIS TIME. INSTRUCTIONS WERE GIVEN, QUESTIONS WERE ANSWERED, PATIENT REPORTS UNDERSTANDING AND AGREES WITH THE PLAN. I, JUDITH JEAN BAPTISTE, DOCUMENTED THE ABOVE INFORMATION ACTING A SCRIBE FOR DR. FUNEZ. I HAVE REVIEWED THE ABOVE DOCUMENT, WRITTEN BY JUDITH JEAN BAPTISTE SCRIBMason AND I VERIFY THAT IT IS ACCURATE. PROCEDURE CODES FA211 ESTABILISHED PATIENT [facility] CHARGE G8730 PAIN ASSESS POS TOOL F/U PLAN DOC G8427 DOC MEDS VERIFIED W/PT OR RE DISPOSITION & COMMUNICATION FOLLOW UP DCS PERM ELECTRONICALLY SIGNED BY BECKY FUNEZ MD ON 09/17/2016 AT 08:24 AM EDT DISCLAIMER : THIS IS A VISIT SUMMARY EXTRACTED FROM THE [facility] CHART. IT IS NOT A COPY OF THE [employer] PROGRESS NOTE. MTDD
== END ==
LOC: M PAIN 13:20
PROVIDERS: ATTEND Anesthesiology
DX: Z09 Encounter for follow-up examination after completed treatment for conditions other than malignant neoplasm (principal); G89.29 Other chronic pain; N50.819 Testicular pain, unspecified; G57.92 Unspecified mononeuropathy of left lower limb; Z88.0 Allergy status to penicillin; Z91.048 Other nonmedicinal substance allergy status; Z88.8 Allergy status to other drugs, medicaments and biological substances; Z79.891 Long term (current) use of opiate analgesic; Z79.899 Other long term (current) drug therapy

== ENCOUNTER 2016-09-24 06:12 | Day surgery (SDC) | payer OTHER ==
[~2016-09-24] VITALS: Ht 175.3 cm; Wt 77.1 kg
[2016-09-24] VITALS (8 sets, daily range): BP systolic 113–136; BP diastolic 55–84
[2016-09-24] MEDS ORDERED: LR 1,000 ML IV SCH ×2 (06:45→10:45)
[2016-09-24] MEDS ORDERED: CLINDAMYCIN 600 MG/50 ML PREMIX BAG As Ordered ONE (06:56)
[2016-09-24] MEDS ORDERED: THROMBIN SOLN 20,000 UNITS KIT As Ordered ONE (07:12)
[2016-09-24] MEDS ORDERED: LIDOCAINE W/EPINEPHRINE 1% 20ML VIAL As Ordered ONE (07:12)
[2016-09-24] MEDS ORDERED: BACITRACIN PWD 50,000 UNITS VIAL As Ordered ONE (07:12)
[2016-09-24] MEDS ORDERED: LIDOCAINE 2% INJ 100 MG/5 ML SDV (FOR ANES.) As Ordered ONE (07:15)
[2016-09-24] MEDS ORDERED: MIDAZOLAM INJ 2 MG/2 ML VIAL (J2250) As Ordered ONE ×2 (07:15→09:12)
[2016-09-24] MEDS ORDERED: PROPOFOL 200 MG/20 ML VIAL As Ordered ONE ×2 (07:15→08:34)
[2016-09-24] MEDS ORDERED: CLINDAMYCIN 600 MG in APPROPRIATE DILUENT 1 EA IV ONE ×3 (07:15→23:00)
[2016-09-24] MEDS ORDERED: fentaNYL 100 MCG/2 ML INJECTION (J3010) As Ordered ONE ×2 (07:15→09:12)
[2016-09-24] MEDS ORDERED: ONDANSETRON 4MG/2ML VIAL (J2405) As Ordered ONE (09:25)
--- NOTE | 2016-09-24 09:59 | REP ---
C-ARM VIEWS, THORACIC SPINE REGION: AP and lateral views of thoracic spine region are performed during placement of a dorsal column stimulator. The leads are seen overlying the lower thoracic region with the distal ends at the level of the lower thorax. 4 minutes 10 seconds fluoroscopy time utilized. Signed by Oli Shelby MD 09/24/2016 08:06 P
[2016-09-24] MEDS ORDERED: PERCOCET 5MG/325MG TAB PO PRN (10:45)
[2016-09-24] MEDS ORDERED: ONDANSETRON 4MG/2ML VIAL (J2405) IV PRN (10:45)
[2016-09-24] MEDS ORDERED: fentaNYL 100 MCG/2 ML INJECTION (J3010) IV PRN (10:45)
[2016-09-24] MEDS ORDERED: METOCLOPRAMIDE INJ 10MG/2ML VIAL (J2765) IV PRN (10:45)
[2016-09-24] MEDS ORDERED: MEPERIDINE INJ 25 MG/ML VIAL (J2175) IV PRN (10:45)
[2016-09-24] MEDS ORDERED: oxyCODONE 5MG TAB PO PRN (10:45)
[2016-09-24] MEDS: oxyCODONE 5MG TAB PO PRN ×3 (11:55→21:42)
[2016-09-24] MEDS: GABAPENTIN 300 MG CAP PO SCH ×3 (13:15→21:42)
--- NOTE | 2016-09-24 21:31 | CR ---
DATE OF CONSULTATION: 09/24/2016 CONSULTATION REPORT FOR: Dr. Landers PRIMARY CARE PROVIDER: Hernandezemmy Jama. REASON FOR CONSULTATION: Medical management. HISTORY OF PRESENT ILLNESS: The patient is a 31-year-old male with past medical history significant for ilioinguinal neuralgia. The patient presented to the hospital for a same-day surgery for placement of a stimulator implant. The patient tolerated procedure well, complaining only of mild soreness postoperatively. Review of systems obtained. No other findings, all of which was negative except for those mentioned above. PAST MEDICAL HISTORY: None. PAST SURGICAL HISTORY: The patient had a history of tonsillectomy, oral surgery, testicular repair, appendectomy, vasectomy and temporary placement of dorsal column stimulator (DCS). FAMILY HISTORY: Noncontributory. SOCIAL HISTORY: The patient denies alcohol of tobacco use. ALLERGIES: To PENICILLIN and VANCOMYCIN. PHYSICAL FINDINGS: Vital signs: Postoperatively: Temperature 99.9, pulse 85, respiratory rate 18, blood pressure is 131/71, pulse oximetry 98% on room air. HEENT: Pupils equal, round, reactive to light and accommodation. Neck: Supple. No jugular venous distention (JVD). Lungs: Clear to auscultation bilaterally. Abdomen: Soft, nontender, nondistended. Extremities: No clubbing, cyanosis or edema. ASSESSMENT/PLAN: 1. Ilioinguinal neuralgia status post stimulator placement. The patient's pain is being followed by Dr. Landers. Patient received a dose of gabapentin. Otherwise pretty stable. Vitals are within normal limits. Patient likely to be discharged in the morning.
[2016-09-25] VITALS: BP 116/57
[2016-09-25 04:00] VITALS: BP 134/61
[2016-09-25 08:20] VITALS: BP 114/71
[2016-09-25] MEDS: GABAPENTIN 300 MG CAP PO SCH (08:23)
[2016-09-25] MEDS: oxyCODONE 5MG TAB PO PRN (08:23)
--- NOTE | 2016-10-02 10:09 | RO ---
DATE OF PROCEDURE: 09/24/2016 PREOPERATIVE DIAGNOSIS: Bilateral ilioinguinal neuralgia. POSTOPERATIVE DIAGNOSIS: Bilateral ilioinguinal neuralgia. PROCEDURE: Spinal column stimulator implant. SURGEON: Jerman Engle MD ST[employer] B[employer]T EQUALIZER: MÓNICA Thorne ANESTHESIA: Local with monitored anesthesia care. PREOPERATIVE NOTE: Mr. Guevara is a 31-year-old male patient with history of inguinal pain and also testicular pain. He is status post inguinal surgery. He has been suffering with this condition for an extended period of time. He has not responded to conservative management. A spinal column stimulator trial was done, and the patient reports more than 80% pain relief after the trial. Patient has expressed that he wants to have a spinal column stimulator implant, reason why he is at the operating room today. Patient denies unexplainable weight loss, fevers, chills, any changes in his urinary or bowel control. DESCRIPTION OF PROCEDURE: After consent was reviewed with the patient, patient was brought to the procedure room and placed in the prone position. Thoracolumbar area was cleaned with Betadine solution and draped aseptically. Procedure was done under sterile conditions. Patient received Clindamycin 600 mg IV as a prophylactic antibiotic. I did an incision approximately at the level of L1 to L3. I exposed the surgical wound, reaching down to the thoracolumbar fascia. After appropriate exposure of the thoracolumbar fascia, then the target was selected at interlaminar level of T12-L1. I first started with the Entrada CX needle. I touched the right lamina of L1 and then, using a loss of resistance technique with an introducer, reached the epidural space approximately 5 cm deep into the tissue. After the epidural space was reached, I advanced a 16-contact lead from [employer]. This was an Infinion CX lead from [employer] and moved it to the posterior and medial aspect of the epidural space to the level approximately of T8. Then, it was decided, like it was done in the trial, to place a second lead. In this occasion, I used the interlaminar level of T12-L1. I used a second Entrada needle, and I touched the left lamina of L1; and then again, by the loss of resistance technique and by the assistance of an introducer, I reached epidural space 5 cm in deep into the skin by the loss of resistance technique. After I was in the epidural space, a second Infinion lead with 16 contacts was advanced through the Entrada needle to the posterior and medial aspect of epidural space and placed parallel to the first lead, approximately at the level of T8. AP and lateral views were done. After appropriate position of the leads was achieved, I attached extension cables to the leads, which were attached to the computer system of [employer], and I started to do programming. During the programming, I changed the position of the leads, I changed the contact used, I changed the voltage, I was checking the impedance. It was a simple 30-minute programming. The patient was satisfied with the stimulation at the level of T8, T9, and T10, so it was decided to secure the leads at this position. I removed the stylettes, removed the extension cables, and I secured a Clik anchor into the thoracolumbar fascia using the Fixate system. After the sleeves were secured and with appropriate position of the leads, which was checked again, I screwed the leads to their sleeves. Then, I started to create the battery pocket. I did the battery pocket approximately 1.5 cm deep into the skin, checked for hemostasis, then I created a tunnel between the midline incision and the battery incision. I advanced, through the tunnel, the leads from the midline incision to the battery placement. I attached the leads to the battery. After reviewing the impendence and checking that the system was working appropriately, I screwed the leads to the battery, put the battery inside of the pocket, and started to close both surgical wounds, the midline and the battery site first with Vicryl #0 and then with Vicryl #3-0 with intermittent inverted sutures. Finally, the skin was closed with Dermabond surgical glue. There was no evidence of blood, paraesthesia, cerebrospinal fluid. There was no evidence of any complication. Patient was sent to the recovery room. Patient was moving extremities and doing well. There were no complications during the procedure. MÓNICA Thorne, assisted me doing the surgery, especially during the closure of the battery incision and the midline incision, especially working at the battery site.
== END 2016-09-25 08:42 | disposition home or self-care (01) ==
LOC: M SDC 06:12 → M PED 11:05 → M SDC 09-25 08:42
PROVIDERS: ATTEND Anesthesiology
DX: G57.83 Other specified mononeuropathies of bilateral lower limbs (principal); N50.819 Testicular pain, unspecified; F41.9 Anxiety disorder, unspecified; R51 Headache; R06.83 Snoring; Z88.0 Allergy status to penicillin; Z88.1 Allergy status to other antibiotic agents; Z91.09 Other allergy status, other than to drugs and biological substances; Z79.899 Other long term (current) drug therapy; Z72.0 Tobacco use
CPT/HCPCS: 63655; 63685; 77002; 96374; 96376; C1778; C1820; J2250; J2405; J3010; L9900

== ENCOUNTER → 2016-10-01 | Outpatient (CLI) | payer OTHER ==
--- NOTE | 2016-10-09 02:00 | ECWPNPC ---
PATIENT NAME: ALEX GLYNN : 1985 GENDER: MALE VISIT DATE: 10/01/2016 DISCHARGE DATE: 10/01/16 1654 VISIT LOCKED DATE TIME: PHYSICIAN: BECKY FUNEZ RESOURCE: BECKY FUNEZ REASON FOR APPOINTMENT 1. GROIN PAIN HISTORY OF PRESENT ILLNESS HISTORY OF PRESENT ILLNESS: PAIN THE PATIENT DESCRIBES THE PAIN... 31 YEAR OLD MALE PATIENT WITH HISTORY OF CHRONIC GROIN PAIN. PATIENT DESCRIBES THE PAIN ACHING AND SORE WITH A PAIN SCORE OF 5/10. PATIENT RECEIVED A PERMANENT DCS ON 09/22/16 AND STATES THAT HIS PAIN IS POST OPERATIVE PAIN. MR. GLYNN STATES THAT HE HAS DISCOMFORT WHERE THE BATTERY IS PLACED BUT STATES THAT HE IS GETTING THE DCS TO REACH THE LOCATIONS HE WOULD LIKE IT TOO. PATIENT IS CURRENTLY USING GABAPENTIN FOR THE NEUROPATHIC PAIN AND OXYCODONE FOR THE POST OP PAIN. PATIENT DENIES UNEXPLAINABLE WEIGHT LOSS, FEVER, CHILLS, NEW CHANGES ON HIS URINARY OR BOWEL CONTROL. FALL RISK SCREENING: SCREENING :NO FALLS IN THE PAST YEAR CURRENT MEDICATIONS TAKING GABAPENTIN 400 MG TABLET 1 CAPSULE ORALLY FOUR TIMES DAILY FOR PAIN MDD4 TAKING OXYCODONE HCL 5 MG TABLET 1 TABLET ORALLY (TO BE USE AFTER THE OPERATION) EVERY 4 HRS PRN FOR PAIN MDD6 TAKING TYLENOL WITH CODEINE #3 300-30 MG TABLET 1 TABLET NEEDED ORALLY EVERY 6 HRS NOT-TAKING HYDROCODONE-ACETAMINOPHEN 5-325 MG TABLET 1 TO 2 TABLET NEEDED ORALLY FOR PAIN EVERY 6 HRS MDD6, NOTES: 07/03 10PM NOT-TAKING CLINDAMYCIN HCL 150 MG CAPSULE 1 CAPSULES ORALLY THREE TIMES DAILY, NOTES: NEVER TOOK NOT-TAKING IBUPROFEN 800 MG TABLET 1 TABLET ORALLY THREE TIMES A DAY, NOTES: PRN NOT-TAKING FISH OIL 1000 MG CAPSULE 1 CAPSULE ORALLY DAILY NOT-TAKING LEVAQUIN 500 MG TABLET 1 TABLET ORALLY ONCE A DAY NOT-TAKING CELEBREX 100 MG CAPSULE 1 CAPSULE ORALLY TWICE A DAY NOT-TAKING SUMATRIPTAN SUCCINATE 25 MG TABLET ORALLY NOT-TAKING TYLENOL 325 MG TABLET 1 TABLET NEEDED ORALLY EVERY 6 HRS NOT-TAKING KETOROLAC TROMETHAMINE 10 MG TABLET 1 TABLET NEEDED ORALLY EVERY 6 HRS NOT-TAKING ZANAFLEX 4 MG TABLET 1 TABLET NEEDED ORALLY EVERY 8 HRS MEDICATION LIST REVIEWED AND RECONCILED WITH THE PATIENT PAST MEDICAL HISTORY EPIDIDYMITIS ALLERGIES PENICILLIN (FOR ALLERGIES USE ONLY): HIVES: ALLERGY BEER: VOMITING/HIVES: ALLERGY VANCOMYCIN HCL: RED MAN SYNDROME: SIDE EFFECTS SURGICAL HISTORY TONSILLECTOMY 1988 ORAL SURGERY 1999 TESTICULAR REPAIR 2008 APPENDIX REMOVED 2007 VASECTOMY 2011 TEMPORARY PLACEMENT OF DCS 07/02/2016 PERMANENT DCS 09/24/16 HOSPITALIZATION/MAJOR DIAGNOSTIC PROCEDURE 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 NO . CHILLS NO . FEVER NO . INFECTION: DO YOU HAVE NEW INFECTIONS? NO . DO YOU HAVE HISTORY OF MRSA? NO . MUSCULOSKELETAL: ANY NEW PATTERNS OF PAIN OR NUMBNESS? NO . GASTROENTEROLOGY: ANY NEW CHANGE IN BOWEL CONTROL? NO . GENITOURINARY: ANY NEW CHANGE IN BLADDER CONTROL? NO . IS THERE A CHANCE YOU COULD BE ? NO . HEMATOLOGY/LYMPH: DO YOU TAKE ANY BLOOD THINNERS? (FOR EXAMPLE- COUMADIN, PLAVIX, AGGRENOX, PLATEL, PRADAXA, OR XARELTO) NO . WHEN WAS YOUR LAST DOSE? DATE: TIME: . NEUROLOGY: HAVE YOU FALLEN IN THE PAST 6 MONTHS? NO . ANY NEW EXTREMITY NUMBNESS OR WEAKNESS? NO . CARDIOLOGY: DO YOU HAVE A PACEMAKER OR DEFIBRILLATOR? NO . RESPIRATORY: HAVE YOU BEEN SICK IN THE PAST WEEK? NO . FEVER NO . FLU LIKE SYMPTOMS? NO . COUGH NO . INTEGUMENTARY: DO YOU HAVE ANY RASHES OR OPEN SORES? NO . ALLERGIC/IMMUNO: ARE YOU ALLERGIC TO SHELLFISH OR IV DYE? NO . ANY NEW ALLERGIES? NO . PSYCHIATRIC: DO YOU HAVE THOUGHTS OF HURTING YOURSELF OR SOMEONE ELSE? NO . ARE YOU ABUSED, NEGLECTED, OR IN AN UNSAFE ENVIRONMENT? NO . ENDOCRINOLOGY: ARE YOU DIABETIC? NO . OTHER: DO YOU NEED ANY PRESCRIPTIONS? NO . IF YES, PLEASE LIST: ____ . ANY NEW PROBLEMS WITH YOUR MEDICATIONS? NO . WHEN DID YOU LAST EAT? ____ . WHEN DID YOU LAST DRINK? ____ . WHAT DID YOU LAST DRINK? ____ . NAME OF PERSON DRIVING YOU HOME? ____ . DO YOU HAVE ANY OTHER QUESTIONS OR CONCERNS NO . REVIEWED BY: PROVIDER: BECKY FUNEZ MD . VITAL SIGNS WT 187.2 LBS, HT 69 IN, BMI 27.64 INDEX, BP 137/76 MM HG, HR 95 /MIN, RR 16 /MIN, TEMP 99:5, OXYGEN SAT % 96%, NA INITIALS SC 15:55, REVIEWED BY: NL. EXAMINATION : PATIENT IS ALERT O X 3 AND COOPERATIVE. RIGHT TESTICLE NOT SENSITIVE TO TOUCH BUT HYPERPATHIA WHEN PRESSURE APPLIED. SCAR TISSUE PRESENT IN TESTICLES FROM SURGERY. TENDERNESS IN THE LOWER BACK AND PARASPINAL MUSCLE GROUP. LEFT LEG WEAKER THEN THE RIGHT AT EXTENSION AND FLEXION. NO SIGN OF INFECTIONS, SCAR PINK IN COLOR. ASSESSMENTS PELVIC AND PERINEAL PAIN - R10.2 (PRIMARY) NEURALGIA AND NEURITIS, UNSPECIFIED - M79.2 TREATMENT PELVIC AND PERINEAL PAIN NOTES: WE DISCUSSED SEVERAL ISSUES WITH MR. GLYNN'S PAIN MANAGEMENT CASE. MR. GLYNN WILL CONTINUE WITH THE SAME MEDICATION REGIME BEFORE. I WOULD LIKE THE PATIENT TO START USING TIZANIDINE FOR THE SPASMS AROUND THE BATTERY. PATIENT MET WITH [employer] TO HAVE THE MACHINE PROGRAMMED. PATIENT REPORTS DOING WELL FROM THE PROCEDURE JUST POST OPERATIVE PAIN AT THIS TIME. MRS. GLYNN WILL RETURN TO THE CLINIC NEXT WEEK TO DISCUSS HOW THE MEDICATION IS HELPING HIM. I WOULD LIKE THE PATIENT TO SIGN A MEDICAL RELEASE FORM SO THAT WE WILL BE ABLE TO SEND RECORDS TO THE PATIENTS NEW DOCTOR. INSTRUCTIONS WERE GIVEN, QUESTIONS WERE ANSWERED, PATIENT REPORTS UNDERSTANDING AND AGREES WITH THE PLAN. I, MAURY VAZQUEZ, DOCUMENTED THE ABOVE INFORMATION ACTING A SCRIBE FOR DR. FUNEZ. I HAVE REVIEWED THE ABOVE DOCUMENT, WRITTEN BY MAURY EDMONDS AND I VERIFY THAT IT IS ACCURATE. OTHERS START TIZANIDINE HCL TABLET, 2 MG, 1 TABLET NEEDED, ORALLY FOR SPASMS AND PAIN, THREE TIMES A DAY, 30 DAY(S), 80, REFILLS 1 DISPOSITION & COMMUNICATION FOLLOW UP 3 WEEKS ELECTRONICALLY SIGNED BY BECKY FUNEZ MD ON 10/08/2016 AT 08:24 PM EDT DISCLAIMER : THIS IS A VISIT SUMMARY EXTRACTED FROM THE [employer] CHART. IT IS NOT A COPY OF THE [employer] PROGRESS NOTE. ELINA
== END ==
LOC: M PAIN 15:40
PROVIDERS: ATTEND Anesthesiology
DX: G89.29 Other chronic pain (principal); R10.2 Pelvic and perineal pain; M79.2 Neuralgia and neuritis, unspecified; Z88.0 Allergy status to penicillin; Z91.018 Allergy to other foods; Z88.1 Allergy status to other antibiotic agents; Z79.899 Other long term (current) drug therapy

== ENCOUNTER → 2016-10-09 | Outpatient (CLI) | payer OTHER ==
--- NOTE | 2016-10-23 00:55 | ECWPNPC ---
PATIENT NAME: ALEX GLYNN : 1985 GENDER: MALE VISIT DATE: 10/09/2016 DISCHARGE DATE: 10/09/16 1724 VISIT LOCKED DATE TIME: PHYSICIAN: BECKY FUNEZ RESOURCE: BECKY FUNEZ REASON FOR APPOINTMENT 1. MEDS HISTORY OF PRESENT ILLNESS HISTORY OF PRESENT ILLNESS: PAIN THE PATIENT DESCRIBES THE PAIN... 31 YEAR OLD MALE PATIENT WITH HISTORY OF CHRONIC GROIN PAIN. PATIENT DESCRIBES THE PAIN SORE WITH A PAIN SCORE OF 5/10 ON TODAY'S VISIT. PATIENT REPORTS THE DCS IS PROVIDING GREAT PAIN RELIEF, BUT HE IS STILL SUFFERING FROM POST SURGICAL PAIN. PATIENT RECEIVED A DCS ON 09/24/2016. PATIENT IS CURRENTLY USING GABAPENTIN FOR THE NEUROPATHIC PAIN AND OXYCODONE FOR THE POST OP PAIN. PATIENT DENIES UNEXPLAINABLE WEIGHT LOSS, FEVER, CHILLS, NEW CHANGES ON HIS URINARY OR BOWEL CONTROL. FALL RISK SCREENING: SCREENING :NO FALLS IN THE PAST YEAR CURRENT MEDICATIONS TAKING GABAPENTIN 400 MG TABLET 1 CAPSULE ORALLY FOUR TIMES DAILY FOR PAIN MDD4 TAKING OXYCODONE HCL 5 MG TABLET 1 TABLET ORALLY (TO BE USE AFTER THE OPERATION) EVERY 4 HRS PRN FOR PAIN MDD6 TAKING TIZANIDINE HCL 2 MG TABLET 1 TABLET NEEDED ORALLY FOR SPASMS AND PAIN THREE TIMES A DAY NOT-TAKING TYLENOL WITH CODEINE #3 300-30 MG TABLET 1 TABLET NEEDED ORALLY EVERY 6 HRS NOT-TAKING HYDROCODONE-ACETAMINOPHEN 5-325 MG TABLET 1 TO 2 TABLET NEEDED ORALLY FOR PAIN EVERY 6 HRS MDD6, NOTES: 07/03 10PM NOT-TAKING CLINDAMYCIN HCL 150 MG CAPSULE 1 CAPSULES ORALLY THREE TIMES DAILY, NOTES: NEVER TOOK NOT-TAKING IBUPROFEN 800 MG TABLET 1 TABLET ORALLY THREE TIMES A DAY, NOTES: PRN NOT-TAKING FISH OIL 1000 MG CAPSULE 1 CAPSULE ORALLY DAILY NOT-TAKING LEVAQUIN 500 MG TABLET 1 TABLET ORALLY ONCE A DAY NOT-TAKING CELEBREX 100 MG CAPSULE 1 CAPSULE ORALLY TWICE A DAY NOT-TAKING SUMATRIPTAN SUCCINATE 25 MG TABLET ORALLY NOT-TAKING TYLENOL 325 MG TABLET 1 TABLET NEEDED ORALLY EVERY 6 HRS NOT-TAKING KETOROLAC TROMETHAMINE 10 MG TABLET 1 TABLET NEEDED ORALLY EVERY 6 HRS NOT-TAKING ZANAFLEX 4 MG TABLET 1 TABLET NEEDED ORALLY EVERY 8 HRS MEDICATION LIST REVIEWED AND RECONCILED WITH THE PATIENT PAST MEDICAL HISTORY EPIDIDYMITIS ALLERGIES PENICILLIN (FOR ALLERGIES USE ONLY): HIVES: ALLERGY BEER: VOMITING/HIVES: ALLERGY VANCOMYCIN HCL: RED MAN SYNDROME: SIDE EFFECTS SURGICAL HISTORY TONSILLECTOMY 1988 ORAL SURGERY 1999 TESTICULAR REPAIR 2007 APPENDIX REMOVED 2007 VASECTOMY 2011 TEMPORARY PLACEMENT OF DCS 07/02/2016 PERMANENT DCS 09/24/16 FAMILY HISTORY NO FAMILY HISTORY DOCUMENTED. SOCIAL HISTORY GENERAL: PAIN CLINIC PFS, CLERGY, PUBLIC HEALTH REFERRALS CLERGY REFERRAL NEEDED?NO WAS THE PROVIDER NOTIFIED OF ANY PERTINENT INFO?NO PFS REFERRAL NEEDED?NO PUBLIC HEALTH REFERRAL NEEDED?NO PATIENT: ____. HOSPITALIZATION/MAJOR DIAGNOSTIC PROCEDURE 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 NO . CHILLS NO . FEVER NO . INFECTION: DO YOU HAVE NEW INFECTIONS? NO . DO YOU HAVE HISTORY OF MRSA? NO . MUSCULOSKELETAL: ANY NEW PATTERNS OF PAIN OR NUMBNESS? NO . GASTROENTEROLOGY: ANY NEW CHANGE IN BOWEL CONTROL? NO . GENITOURINARY: ANY NEW CHANGE IN BLADDER CONTROL? NO . IS THERE A CHANCE YOU COULD BE ? NO . HEMATOLOGY/LYMPH: DO YOU TAKE ANY BLOOD THINNERS? (FOR EXAMPLE- COUMADIN, PLAVIX, AGGRENOX, PLATEL, PRADAXA, OR XARELTO) NO . WHEN WAS YOUR LAST DOSE? DATE: TIME: . NEUROLOGY: HAVE YOU FALLEN IN THE PAST 6 MONTHS? NO . ANY NEW EXTREMITY NUMBNESS OR WEAKNESS? NO . CARDIOLOGY: DO YOU HAVE A PACEMAKER OR DEFIBRILLATOR? NO . RESPIRATORY: HAVE YOU BEEN SICK IN THE PAST WEEK? NO . FEVER NO . FLU LIKE SYMPTOMS? NO . COUGH NO . INTEGUMENTARY: DO YOU HAVE ANY RASHES OR OPEN SORES? NO . ALLERGIC/IMMUNO: ARE YOU ALLERGIC TO SHELLFISH OR IV DYE? NO . ANY NEW ALLERGIES? NO . PSYCHIATRIC: DO YOU HAVE THOUGHTS OF HURTING YOURSELF OR SOMEONE ELSE? NO . ARE YOU ABUSED, NEGLECTED, OR IN AN UNSAFE ENVIRONMENT? NO . ENDOCRINOLOGY: ARE YOU DIABETIC? NO . OTHER: DO YOU NEED ANY PRESCRIPTIONS? NO . IF YES, PLEASE LIST: ____ . ANY NEW PROBLEMS WITH YOUR MEDICATIONS? NO . WHEN DID YOU LAST EAT? ____ . WHEN DID YOU LAST DRINK? ____ . WHAT DID YOU LAST DRINK? ____ . NAME OF PERSON DRIVING YOU HOME? ____ . DO YOU HAVE ANY OTHER QUESTIONS OR CONCERNS NO . REVIEWED BY: PROVIDER: BECKY FUNEZ MD . VITAL SIGNS WT 180.0 LBS, HT 69 IN, BMI 26.58 INDEX, BP 135/80 MM HG, HR 72 /MIN, RR 16 /MIN, TEMP 97.9 F, OXYGEN SAT % 95%, NA INITIALS TL 1553, REVIEWED BY: CL. EXAMINATION : PATIENT IS ALERT O X 3 AND COOPERATIVE. SCAR TISSUE PRESENT IN TESTICLES FROM SURGERY. TENDERNESS IN THE LOWER BACK AND PARASPINAL MUSCLE GROUP. LEFT LEG WEAKER THEN THE RIGHT AT EXTENSION AND FLEXION. NO SIGN OF INFECTIONS, SCAR PINK IN COLOR. ASSESSMENTS NEURALGIA AND NEURITIS, UNSPECIFIED - M79.2 (PRIMARY) PELVIC AND PERINEAL PAIN - R10.2 TREATMENT NEURALGIA AND NEURITIS, UNSPECIFIED REFILL GABAPENTIN TABLET, 400 MG, 1 CAPSULE, ORALLY, FOUR TIMES DAILY FOR PAIN MDD4, 30 DAYS, 120, REFILLS 2 REFILL OXYCODONE HCL TABLET, 5 MG, 1 TABLET, ORALLY, EVERY 4 HRS PRN FOR PAIN MDD2, 10 DAYS, 15, REFILLS 0 NOTES: WE DISCUSSED SEVERAL ISSUES WITH MR. GLYNN'S PAIN MANAGEMENT CASE. THE ONLY CHANGE IN MEDICATIONS TODAY IS INCREASING TIZANIDINE DUE TO INCREASE IN SPASTICITY AND TO HELP THE PATIENT SLEEP AT NIGHT. AT THIS TIME AFTER EXAMINING THE PAIN I WILL EXTEND HIS OUT OF WORK QUARTERS FOR ANOTHER 2 WEEKS TO ALLOW MS. GLYNN ADEQUATE REST AND HEALING. MR. GLYNN WILL BE ABLE TO RETURN TO WORK ON NOVEMBER 12. PATIENT WILL FOLLOW UP WITH ME IN 2 WEEKS. OTHERS REFILL TIZANIDINE HCL TABLET, 4 MG, 1 TABLET NEEDED, ORALLY, BEFORE BEDTIME MAY REPEAT IN 4 HRS, 30 DAY(S), 50, REFILLS 2 PROCEDURE CODES FA211 ESTABILISHED PATIENT [facility] FACILITY CHARGE G8730 PAIN ASSESS POS TOOL F/U PLAN DOC G8427 DOC MEDS VERIFIED W/PT OR RE DISPOSITION & COMMUNICATION FOLLOW UP 2 WEEKS ELECTRONICALLY SIGNED BY BECKY FUNEZ MD ON 10/22/2016 AT 06:27 PM EDT DISCLAIMER : THIS IS A VISIT SUMMARY EXTRACTED FROM THE [employer] CHART. IT IS NOT A COPY OF THE [employer] PROGRESS NOTE. CORRINED
== END ==
LOC: M PAIN 15:40
PROVIDERS: ATTEND Anesthesiology
DX: G89.29 Other chronic pain (principal); M79.2 Neuralgia and neuritis, unspecified; R10.2 Pelvic and perineal pain; Z88.0 Allergy status to penicillin; Z91.018 Allergy to other foods; Z88.1 Allergy status to other antibiotic agents; Z79.891 Long term (current) use of opiate analgesic; Z79.899 Other long term (current) drug therapy

== ENCOUNTER → 2016-10-24 | Outpatient (CLI) | payer OTHER ==
--- NOTE | 2016-11-07 01:53 | ECWPNPC ---
PATIENT NAME: ALEX GLYNN : 1985 GENDER: MALE VISIT DATE: 10/24/2016 DISCHARGE DATE: 10/24/16 1655 VISIT LOCKED DATE TIME: PHYSICIAN: BECKY FUNEZ RESOURCE: BECKY FUNEZ REASON FOR APPOINTMENT 1. MEDS HISTORY OF PRESENT ILLNESS GENERAL: 31 YEAR OLD MALE PATIENT WITH HISTORY OF CHRONIC GROIN PAIN. PATIENT DESCRIBES THE PAIN SHARP, AND IT COMES AND GOES WITH A PAIN SCORE OF 5/10 ON TODAY'S VISIT. PATIENT RECEIVED A DCS ON 09/24/2016, AND STATES THAT IT IS PROVIDING GOOD PAIN RELIEF FOR THE GROIN PAIN. PATIENT STATES THAT HIS CURRENT PAIN IS MAINLY FROM THE SURGICAL SITE. PATIENT DENIES UNEXPLAINABLE WEIGHT LOSS, FEVER, CHILLS, NEW CHANGES ON HIS URINARY OR BOWEL CONTROL. CURRENT MEDICATIONS TAKING TIZANIDINE HCL 4 MG TABLET 1 TABLET NEEDED ORALLY BEFORE BEDTIME MAY REPEAT IN 4 HRS TAKING GABAPENTIN 400 MG TABLET 1 CAPSULE ORALLY FOUR TIMES DAILY FOR PAIN MDD4 TAKING OXYCODONE HCL 5 MG TABLET 1 TABLET ORALLY EVERY 4 HRS PRN FOR PAIN MDD2 NOT-TAKING TYLENOL WITH CODEINE #3 300-30 MG TABLET 1 TABLET NEEDED ORALLY EVERY 6 HRS NOT-TAKING HYDROCODONE-ACETAMINOPHEN 5-325 MG TABLET 1 TO 2 TABLET NEEDED ORALLY FOR PAIN EVERY 6 HRS MDD6, NOTES: 07/03 10PM NOT-TAKING CLINDAMYCIN HCL 150 MG CAPSULE 1 CAPSULES ORALLY THREE TIMES DAILY, NOTES: NEVER TOOK NOT-TAKING IBUPROFEN 800 MG TABLET 1 TABLET ORALLY THREE TIMES A DAY, NOTES: PRN NOT-TAKING FISH OIL 1000 MG CAPSULE 1 CAPSULE ORALLY DAILY NOT-TAKING LEVAQUIN 500 MG TABLET 1 TABLET ORALLY ONCE A DAY NOT-TAKING CELEBREX 100 MG CAPSULE 1 CAPSULE ORALLY TWICE A DAY NOT-TAKING SUMATRIPTAN SUCCINATE 25 MG TABLET ORALLY NOT-TAKING TYLENOL 325 MG TABLET 1 TABLET NEEDED ORALLY EVERY 6 HRS NOT-TAKING KETOROLAC TROMETHAMINE 10 MG TABLET 1 TABLET NEEDED ORALLY EVERY 6 HRS NOT-TAKING ZANAFLEX 4 MG TABLET 1 TABLET NEEDED ORALLY EVERY 8 HRS MEDICATION LIST REVIEWED AND RECONCILED WITH THE PATIENT PAST MEDICAL HISTORY EPIDIDYMITIS ALLERGIES PENICILLIN (FOR ALLERGIES USE ONLY): HIVES: ALLERGY BEER: VOMITING/HIVES: ALLERGY VANCOMYCIN HCL: RED MAN SYNDROME: SIDE EFFECTS VITAL SIGNS WT 180.0 LBS, HT 69 IN, BMI 26.58 INDEX, BP 128/72 MM HG, HR 73 /MIN, RR 16 /MIN, TEMP 99.0 F, OXYGEN SAT % 98%, NA INITIALS TL 1539. EXAMINATION GENERAL: PATIENT IS ALERT O X 3 AND COOPERATIVE. NO SIGN OF INFECTIONS, SCAR PINK IN COLOR. ASSESSMENTS NEURALGIA AND NEURITIS, UNSPECIFIED - M79.2 (PRIMARY) PELVIC AND PERINEAL PAIN - R10.2 TREATMENT NEURALGIA AND NEURITIS, UNSPECIFIED NOTES: WE DISCUSSED SEVERAL ISSUES WITH MR. GLYNN'S PAIN MANAGEMENT CASE. I DISCUSSED WITH THE PATIENT ABOUT A MONTH FROM NOW, I BELIEVE HE WOULD BENEFIT FROM PHYSICAL THERAPY. PATIENT WILL CONTINUE ON THE SAME MEDICATION REGIMEN BEFORE. PATIENT WILL FOLLOW UP WITH RILEY WALKER IN 1 MONTH. INSTRUCTIONS WERE GIVEN, QUESTIONS WERE ANSWERED, PATIENT REPORTS UNDERSTANDING AND AGREES WITH THE PLAN. I, JUDITH JEAN BAPTISTE, DOCUMENTED THE ABOVE INFORMATION ACTING A SCRIBE FOR DR. FUNEZ. I HAVE REVIEWED THE ABOVE DOCUMENT, WRITTEN BY JUDITH JEAN BAPTISTE SCRIBMason AND I VERIFY THAT IT IS ACCURATE. PROCEDURE CODES FA211 ESTABILISHED PATIENT [facility] FACILITY CHARGE G8730 PAIN ASSESS POS TOOL F/U PLAN DOC G8427 DOC MEDS VERIFIED W/PT OR RE DISPOSITION & COMMUNICATION FOLLOW UP 4 WEEKS ELECTRONICALLY SIGNED BY BECKY FUNEZ MD ON 11/06/2016 AT 05:58 PM EDT DISCLAIMER : THIS IS A VISIT SUMMARY EXTRACTED FROM THE [employer] CHART. IT IS NOT A COPY OF THE [employer] PROGRESS NOTE. MTDD
== END ==
LOC: M PAIN 15:50
PROVIDERS: ATTEND Anesthesiology
DX: G89.29 Other chronic pain (principal); M79.2 Neuralgia and neuritis, unspecified; R10.2 Pelvic and perineal pain; Z88.0 Allergy status to penicillin; Z91.018 Allergy to other foods; Z88.1 Allergy status to other antibiotic agents; Z79.891 Long term (current) use of opiate analgesic; Z79.899 Other long term (current) drug therapy

== ENCOUNTER → 2016-11-28 | Outpatient (CLI) | payer OTHER ==
--- NOTE | 2016-12-18 01:27 | ECWPNPC ---
PATIENT NAME: ALEX GLYNN : 1985 GENDER: MALE VISIT DATE: 11/28/2016 DISCHARGE DATE: 11/28/16 1510 VISIT LOCKED DATE TIME: PHYSICIAN: ADITI GALLAGHER RESOURCE: ADIIT GALLAGHER REASON FOR APPOINTMENT 1. GROIN PAIN, POST SCS HISTORY OF PRESENT ILLNESS HISTORY OF PRESENT ILLNESS: PAIN THE PATIENT DESCRIBES THE PAIN... FALL RISK SCREENING: SCREENING :NO FALLS IN THE PAST YEAR TODAY'S VISIT: NOTES: RATES PAIN TODAY 07/13. IS S/P DCS FOR GROIN PAIN 09/24/16 REPORTS HE HAD AN ADJUSTMENT TO THE STIMULATOR PROGRAMMING EARLIER THIS MONTH AND HE IS OBTAINING GOOD COVERAGE INTO BOTH GROIN AREAS, ACROSS THE BACK AND TO HIS KNEES. IS NOTICING INCREASED TIGHTNESS IN HIS BACK AND LEGS, AND IS FINDING IT HARD TO RISE TO A STANDING POSIITON, OR STAND UPRIGHT VERY LONG. HAS BEEN TRING TO DO MORE OF HIS [employer] PT BUT THIS IS GOING SLOWLY. IS HAVING DIFFICULTY WITH SLEEP DUE TO BACK PAIN. CURRENT MEDICATIONS TAKING TIZANIDINE HCL 4 MG TABLET 1 TABLET NEEDED ORALLY BEFORE BEDTIME MAY REPEAT IN 4 HRS TAKING GABAPENTIN 400 MG TABLET 1 CAPSULE ORALLY FOUR TIMES DAILY FOR PAIN MDD4 TAKING OXYCODONE HCL 5 MG TABLET 1 TABLET ORALLY EVERY 4 HRS PRN FOR PAIN MDD2 NOT-TAKING TYLENOL WITH CODEINE #3 300-30 MG TABLET 1 TABLET NEEDED ORALLY EVERY 6 HRS NOT-TAKING HYDROCODONE-ACETAMINOPHEN 5-325 MG TABLET 1 TO 2 TABLET NEEDED ORALLY FOR PAIN EVERY 6 HRS MDD6, NOTES: 07/03 10PM NOT-TAKING CLINDAMYCIN HCL 150 MG CAPSULE 1 CAPSULES ORALLY THREE TIMES DAILY, NOTES: NEVER TOOK NOT-TAKING IBUPROFEN 800 MG TABLET 1 TABLET ORALLY THREE TIMES A DAY, NOTES: PRN NOT-TAKING FISH OIL 1000 MG CAPSULE 1 CAPSULE ORALLY DAILY NOT-TAKING LEVAQUIN 500 MG TABLET 1 TABLET ORALLY ONCE A DAY NOT-TAKING CELEBREX 100 MG CAPSULE 1 CAPSULE ORALLY TWICE A DAY NOT-TAKING SUMATRIPTAN SUCCINATE 25 MG TABLET ORALLY NOT-TAKING TYLENOL 325 MG TABLET 1 TABLET NEEDED ORALLY EVERY 6 HRS NOT-TAKING KETOROLAC TROMETHAMINE 10 MG TABLET 1 TABLET NEEDED ORALLY EVERY 6 HRS NOT-TAKING ZANAFLEX 4 MG TABLET 1 TABLET NEEDED ORALLY EVERY 8 HRS MEDICATION LIST REVIEWED AND RECONCILED WITH THE PATIENT PAST MEDICAL HISTORY EPIDIDYMITIS ALLERGIES PENICILLIN (FOR ALLERGIES USE ONLY): HIVES: ALLERGY BEER: VOMITING/HIVES: ALLERGY VANCOMYCIN HCL: RED MAN SYNDROME: SIDE EFFECTS SOCIAL HISTORY GENERAL: TOBACCO USE ARE YOU A:CURRENT SMOKER PATIENT COUNSELED ON THE DANGERS OF TOBACCO USE AND URGED TO QUIT:07/06/2016 ARE YOU INTERESTED IN QUITTING?NOT READY TO QUIT COUNSELED THE PATIENT ON SMOKING EFFECTS, EDUCATION [id number]/03/2017 SMOKING CESSATION INFORMATION GIVEN11/28/2016 PAIN CLINIC PFS, CLERGY, PUBLIC HEALTH REFERRALS PFS REFERRAL NEEDED? NO , CLERGY REFERRAL NEEDED? NO , PUBLIC HEALTH REFERRAL NEEDED? NO , WAS THE PROVIDER NOTIFIED OF ANY PERTINENT INFO? NO . PATIENT: ____. REVIEW OF SYSTEMS REVIEWED BY: PROVIDER: ADITI LOVE . CONSTITUTIONAL: ANY CHANGE IN YOUR MEDICAL CONDITION? NO . CHILLS NO . FEVER NO . INFECTION: DO YOU HAVE NEW INFECTIONS? NO . DO YOU HAVE HISTORY OF MRSA? NO . MUSCULOSKELETAL: ANY NEW PATTERNS OF PAIN OR NUMBNESS? NO . GASTROENTEROLOGY: ANY NEW CHANGE IN BOWEL CONTROL? NO . GENITOURINARY: ANY NEW CHANGE IN BLADDER CONTROL? NO . IS THERE A CHANCE YOU COULD BE ? NO . HEMATOLOGY/LYMPH: DO YOU TAKE ANY BLOOD THINNERS? (FOR EXAMPLE- COUMADIN, PLAVIX, AGGRENOX, PLATEL, PRADAXA, OR XARELTO) NO . WHEN WAS YOUR LAST DOSE? DATE: TIME: . NEUROLOGY: HAVE YOU FALLEN IN THE PAST 6 MONTHS? NO . ANY NEW EXTREMITY NUMBNESS OR WEAKNESS? NO . CARDIOLOGY: DO YOU HAVE A PACEMAKER OR DEFIBRILLATOR? NO . RESPIRATORY: HAVE YOU BEEN SICK IN THE PAST WEEK? NO . FEVER NO . FLU LIKE SYMPTOMS? NO . COUGH NO . INTEGUMENTARY: DO YOU HAVE ANY RASHES OR OPEN SORES? NO . ALLERGIC/IMMUNO: ARE YOU ALLERGIC TO SHELLFISH OR IV DYE? NO . ANY NEW ALLERGIES? NO . PSYCHIATRIC: DO YOU HAVE THOUGHTS OF HURTING YOURSELF OR SOMEONE ELSE? NO . ARE YOU ABUSED, NEGLECTED, OR IN AN UNSAFE ENVIRONMENT? NO . ENDOCRINOLOGY: ARE YOU DIABETIC? NO . OTHER: DO YOU NEED ANY PRESCRIPTIONS? YES INFORMED THE PT THAT HE HAS REFILLS AVAILABLE FOR GABEPENTIN AND TIZANADINE . IF YES, PLEASE LIST: ____ . ANY NEW PROBLEMS WITH YOUR MEDICATIONS? NO . WHEN DID YOU LAST EAT? ____ . WHEN DID YOU LAST DRINK? ____ . WHAT DID YOU LAST DRINK? ____ . NAME OF PERSON DRIVING YOU HOME? ____ . DO YOU HAVE ANY OTHER QUESTIONS OR CONCERNS YES PT IS WONDERING IF HE WOULD BENEFIT FROM PT . VITAL SIGNS WT 190 LBS, HT 69 IN, BMI 28.06 INDEX, BP 146/76 MM HG, HR 98 /MIN, RR 16 /MIN, TEMP 98.0 F, OXYGEN SAT % 98%, NA INITIALS SC 14:09, REVIEWED BY: KG. EXAMINATION GENERAL EXAMINATION: PSYCHALERT , ORIENTED X 3 , APPROPRIATE MOOD AND AFFECT , GOOD EYE CONTACT. LUNGS:CLEAR TO AUSCULTATION BILATERALLY, NO WHEEZES, RALES OR RHONCHI. HEART:HEART RATE REGULAR, NORMAL S1S2, NO MURMURS, CLICK OR RUBS. MUSCULOSKELETAL:MUSCLE STRENGTH TESTING 5/5 BILATERAL UPPER AND LOWER EXTREMITIES. LEFT SCAPULAR WINGING NOTED. , TRIGGER POINTS AND TIGHT FIBROUS BANDS IDENTIFIED OVER LUMBAR PARAVERTEBRAL MUSCLES. WELL HEALED SUGICAL INCISION OVER LUMAR SPINE - SLIGHT TENDERNESS AT PROXIMAL EDGE OF INCISION. WELL HEALED INCISION OVER LEFT FLANK FOR DCS GENERATOR. NO TENDERNESS OVER GENERATOR. NO SPECIFIC SACRAL ILIAC JOINT TENDERNESS. SLOW TO RISE TO STANDING POSITION. . ASSESSMENTS NEURALGIA AND NEURITIS, UNSPECIFIED - M79.2 (PRIMARY) TREATMENT NEURALGIA AND NEURITIS, UNSPECIFIED REFILL GABAPENTIN TABLET, 400 MG, 1 CAPSULE, ORALLY, FOUR TIMES DAILY FOR PAIN MDD4, 30 DAYS, 120, REFILLS 2 OTHERS REFILL TIZANIDINE HCL TABLET, 4 MG, 1 TABLET NEEDED, ORALLY, BEFORE BEDTIME MAY REPEAT IN 4 HRS, 30 DAY(S), 50, REFILLS 2 TRIGGER POINT 3 + ADITI GARZA 11/28/2016 2:52:46 PM > LOW AND MID BACK NOTES: CHECK INTO CUPPING TREATMENT. CHECK INTO YOGA CONTINUE CURRENT MEDS. WALK 1/2 MILE EVERY DAY, INCREASE WHEN THIS IS TOO EASY. RECOMMEND POOL THERAPY - SWIMMING. PROCEDURE CODES FA211 ESTABILISHED PATIENT [facility] FAC[facility] CHARGE DISPOSITION & COMMUNICATION FOLLOW UP AFTER INJECTION (REASON: CHECK AUTH FOR TPI) ELECTRONICALLY SIGNED BY ANIKET VANN ON 12/17/2016 AT 06:03 PM EDT DISCLAIMER : THIS IS A VISIT SUMMARY EXTRACTED FROM THE [employer] CHART. IT IS NOT A COPY OF THE [employer] PROGRESS NOTE. MTDD
== END ==
LOC: M PAIN 14:00
PROVIDERS: ATTEND Nurse Practitioner Family
DX: G89.29 Other chronic pain (principal); M79.2 Neuralgia and neuritis, unspecified; R10.30 Lower abdominal pain, unspecified; F17.210 Nicotine dependence, cigarettes, uncomplicated; Z88.0 Allergy status to penicillin; Z88.5 Allergy status to narcotic agent; Z91.09 Other allergy status, other than to drugs and biological substances; Z79.891 Long term (current) use of opiate analgesic; Z79.899 Other long term (current) drug therapy

== ENCOUNTER → 2016-12-19 | Outpatient (CLI) | payer OTHER ==
[~2016-12-19] MED LIST changes: +BUPIVACAINE HCL 0.25% 10 ML VIAL As Ordered ONE; +BUPIVACAINE HCL 0.25% 30 ML VIAL As Ordered ONE; +TRIAMCINOLONE ACETONIDE SUSP 40 MG/ML VIAL (J3301) As Ordered ONE; +diazePAM 5 MG TAB As Ordered ONE; +oxyCODONE 5MG TAB As Ordered ONE
--- NOTE | 2016-12-30 23:25 | ECWPNPC ---
PATIENT NAME: ALEX GLYNN : 1985 GENDER: MALE VISIT DATE: 12/19/2016 DISCHARGE DATE: 12/19/16 1244 VISIT LOCKED DATE TIME: PHYSICIAN: BECKY FUNEZ RESOURCE: BECKY FUNEZ REASON FOR APPOINTMENT 1. MID TO LOW BACK HISTORY OF PRESENT ILLNESS HISTORY OF PRESENT ILLNESS: PAIN THE PATIENT DESCRIBES THE PAIN... FALL RISK SCREENING: SCREENING :NO FALLS IN THE PAST YEAR CURRENT MEDICATIONS TAKING OXYCODONE HCL 5 MG TABLET 1 TABLET ORALLY EVERY 4 HRS PRN FOR PAIN MDD2, NOTES: 1 WEEK AGO TAKING GABAPENTIN 400 MG TABLET 1 CAPSULE ORALLY FOUR TIMES DAILY FOR PAIN MDD4, NOTES: 12/18/16@1900 TAKING TIZANIDINE HCL 4 MG TABLET 1 TABLET NEEDED ORALLY BEFORE BEDTIME MAY REPEAT IN 4 HRS, NOTES: 12/18/16@2200 NOT-TAKING TYLENOL WITH CODEINE #3 300-30 MG TABLET 1 TABLET NEEDED ORALLY EVERY 6 HRS NOT-TAKING HYDROCODONE-ACETAMINOPHEN 5-325 MG TABLET 1 TO 2 TABLET NEEDED ORALLY FOR PAIN EVERY 6 HRS MDD6, NOTES: 07/03 10PM NOT-TAKING CLINDAMYCIN HCL 150 MG CAPSULE 1 CAPSULES ORALLY THREE TIMES DAILY, NOTES: NEVER TOOK NOT-TAKING IBUPROFEN 800 MG TABLET 1 TABLET ORALLY THREE TIMES A DAY, NOTES: PRN NOT-TAKING FISH OIL 1000 MG CAPSULE 1 CAPSULE ORALLY DAILY NOT-TAKING LEVAQUIN 500 MG TABLET 1 TABLET ORALLY ONCE A DAY NOT-TAKING CELEBREX 100 MG CAPSULE 1 CAPSULE ORALLY TWICE A DAY NOT-TAKING SUMATRIPTAN SUCCINATE 25 MG TABLET ORALLY NOT-TAKING TYLENOL 325 MG TABLET 1 TABLET NEEDED ORALLY EVERY 6 HRS NOT-TAKING KETOROLAC TROMETHAMINE 10 MG TABLET 1 TABLET NEEDED ORALLY EVERY 6 HRS NOT-TAKING ZANAFLEX 4 MG TABLET 1 TABLET NEEDED ORALLY EVERY 8 HRS MEDICATION LIST REVIEWED AND RECONCILED WITH THE PATIENT PAST MEDICAL HISTORY EPIDIDYMITIS ALLERGIES PENICILLIN (FOR ALLERGIES USE ONLY): HIVES: ALLERGY BEER: VOMITING/HIVES: ALLERGY VANCOMYCIN HCL: RED MAN SYNDROME: SIDE EFFECTS SOCIAL HISTORY GENERAL: TOBACCO USE ARE YOU A:CURRENT SMOKER PATIENT COUNSELED ON THE DANGERS OF TOBACCO USE AND URGED TO QUIT:12/19/2016 ARE YOU INTERESTED IN QUITTING?READY TO QUIT COUNSELED THE PATIENT ON TOBACCO USE, CESSATION [id number]/19/2017 SMOKING CESSATION INFORMATION GIVEN11/28/2016 PAIN CLINIC PFS, CLERGY, PUBLIC HEALTH REFERRALS PFS REFERRAL NEEDED? NO , CLERGY REFERRAL NEEDED? NO , PUBLIC HEALTH REFERRAL NEEDED? NO , WAS THE PROVIDER NOTIFIED OF ANY PERTINENT INFO? NO . PATIENT: ____. REVIEW OF SYSTEMS REVIEWED BY: PROVIDER: . CONSTITUTIONAL: ANY CHANGE IN YOUR MEDICAL CONDITION? NO . CHILLS NO . FEVER NO . INFECTION: DO YOU HAVE NEW INFECTIONS? NO . DO YOU HAVE HISTORY OF MRSA? NO . MUSCULOSKELETAL: ANY NEW PATTERNS OF PAIN OR NUMBNESS? NO . GASTROENTEROLOGY: ANY NEW CHANGE IN BOWEL CONTROL? NO . GENITOURINARY: ANY NEW CHANGE IN BLADDER CONTROL? NO . IS THERE A CHANCE YOU COULD BE ? NO . HEMATOLOGY/LYMPH: DO YOU TAKE ANY BLOOD THINNERS? (FOR EXAMPLE- COUMADIN, PLAVIX, AGGRENOX, PLATEL, PRADAXA, OR XARELTO) NO . WHEN WAS YOUR LAST DOSE? DATE: TIME: . NEUROLOGY: HAVE YOU FALLEN IN THE PAST 6 MONTHS? NO . ANY NEW EXTREMITY NUMBNESS OR WEAKNESS? NO . CARDIOLOGY: DO YOU HAVE A PACEMAKER OR DEFIBRILLATOR? NO . RESPIRATORY: HAVE YOU BEEN SICK IN THE PAST WEEK? NO . FEVER NO . FLU LIKE SYMPTOMS? NO . COUGH NO . INTEGUMENTARY: DO YOU HAVE ANY RASHES OR OPEN SORES? NO . ALLERGIC/IMMUNO: ARE YOU ALLERGIC TO SHELLFISH OR IV DYE? NO . ANY NEW ALLERGIES? NO . PSYCHIATRIC: DO YOU HAVE THOUGHTS OF HURTING YOURSELF OR SOMEONE ELSE? NO . ARE YOU ABUSED, NEGLECTED, OR IN AN UNSAFE ENVIRONMENT? NO . ENDOCRINOLOGY: ARE YOU DIABETIC? NO . OTHER: DO YOU NEED ANY PRESCRIPTIONS? NO . IF YES, PLEASE LIST: ____ . ANY NEW PROBLEMS WITH YOUR MEDICATIONS? NO . WHEN DID YOU LAST EAT? ____12/18/16 . WHEN DID YOU LAST DRINK? ____12/18/18 . WHAT DID YOU LAST DRINK? ____ . NAME OF PERSON DRIVING YOU HOME? -GAIL . DO YOU HAVE ANY OTHER QUESTIONS OR CONCERNS NO . VITAL SIGNS WT 185 LBS, HT 69 IN, BMI 27.32 INDEX, BP 124/80 MM HG, HR 90 /MIN, RR 16 /MIN, TEMP 98.8 F, OXYGEN SAT % 99%, NA INITIALS SC 10:28, REVIEWED BY: KAI. ASSESSMENTS MYALGIA - M79.1 (PRIMARY) PROCEDURES PN TRIGGER POINT INJECTION WITH STEROIDS PRE PROCEDURE DIAGNOSIS 1. MYALGIA 2. PAIN AT LEFT THORACIC AREA AND LEFT LOWER BACK AREA POST PROCEDURE DIAGNOSIS 1. MYALGIA 2. PAIN AT LEFT THORACIC AREA AND LEFT LOWER BACK AREA PROCEDURE TRIGGER POINT INJECTION AT LEFT THORACIC AREA AND LEFT LOWER BACK AREA SURGEON DR. BECKY FUNEZ ELECTROMECHANICAL TECHNOLOGIST NONE ANESTHESIA LOCAL PRE PROCEDURE NOTE THE PATIENT HAS A HISTORY OF CHRONIC PAIN AT THE LEFT THORACIC AREA AND LEFT LOWER BACK AREA. I EVALUATE THE PATIENT AND REVIEWED THE CHART. THERE IS EVIDENCE OF BANDS OF TISSUE WITH RESTRICTION OF MOVEMENT AND PRESENCE OF TRIGGER POINT AT THE AFFECTED AREA. I WENT OVER THE RISKS, ALTERNATIVES, AND BENEFITS ASSOCIATED WITH THIS PROCEDURE. THE PATIENT WOULD LIKE TO PROCEED AND GIVE CONSENT TO PERFORMED THE PROCEDURE. THE PATIENT DENIES UNEXPLAINABLE WEIGHT LOSS, FEVER, CHILLS, OR NEW CHANGES IN URINARY OR BOWEL CONTROL DESCRIPTION OF PROCEDURE THE PATIENT WAS BROUGHT TO THE PROCEDURE ROOM AND PLACED IN THE SITTING POSITION. THE AREA WAS CLEANED WITH ALCOHOL. THE PROCEDURE WAS DONE USING ASEPTIC STERILE TECHNIQUE. I CHECKED LATERALITY AND THE LEVEL WHERE THE PROCEDURE WAS GOING TO BE PERFORMED WITH THE PATIENT AND THE SUPPORTING STAFF AT THE MOMENT OF THE TIME OUT IN THE PROCEDURE ROOM. USING A 25-GAUGE NEEDLE, TRIGGER POINTS WERE INJECTED AT THE LEFT THORACIC AREA AND LEFT LOWER BACK AREA WITH A TOTAL OF 40 ML OF BUPIVACAINE 0.25% AND KENALOG 40 MG. THERE WAS NO EVIDENCE OF BLOOD, PARESTHESIA OR CEREBROSPINAL FLUID DURING THE PROCEDURE. THE PATIENT WAS SENT TO THE RECOVERY ROOM. THE PATIENT WAS MOVING THE EXTREMITIES AND DOING WELL. THERE WAS NO COMPLICATION DURING THE PROCEDURE POST PROCEDURE NOTE THE PATIENT WILL BE SEEN IN A FOLLOW UP IN THE NEXT FEW WEEKS. INSTRUCTIONS WERE GIVEN, QUESTIONS WERE ANSWERED, AND THE PATIENT EXPRESSED UNDERSTANDING AND AGREES WITH THE PLAN. I, MAURY VAZQUEZ, DOCUMENTED THE ABOVE INFORMATION ACTING A SCRIBE FOR DR. FUNEZ. I HAVE REVIEWED THE ABOVE DOCUMENT, WRITTEN BY MAURY EDMONDS AND I VERIFY THAT IT IS ACCURATE PROCEDURE CODES 89541 INJ [place] / [facility] [place] COMMUNICATION FOLLOW UP 3 WEEKS ELECTRONICALLY SIGNED BY BECKY FUNEZ MD ON 12/30/2016 AT 08:08 PM EDT DISCLAIMER : THIS IS A VISIT SUMMARY EXTRACTED FROM THE [employer] CHART. IT IS NOT A COPY OF THE [employer] PROGRESS NOTE. [facility]
== END ==
LOC: M PAIN 10:20
PROVIDERS: ATTEND Anesthesiology
DX: G89.29 Other chronic pain (principal); M54.6 Pain in thoracic spine; M54.5 Low back pain; M79.1 Myalgia; F17.210 Nicotine dependence, cigarettes, uncomplicated; Z88.0 Allergy status to penicillin; Z88.1 Allergy status to other antibiotic agents; Z91.09 Other allergy status, other than to drugs and biological substances; Z79.891 Long term (current) use of opiate analgesic; Z79.899 Other long term (current) drug therapy
CPT/HCPCS: 20552; J3301

== ENCOUNTER → 2017-01-03 | Outpatient (CLI) | payer OTHER ==
[~2017-01-03] MED LIST changes: -BUPIVACAINE HCL 0.25% 10 ML VIAL As Ordered ONE; -BUPIVACAINE HCL 0.25% 30 ML VIAL As Ordered ONE; -TRIAMCINOLONE ACETONIDE SUSP 40 MG/ML VIAL (J3301) As Ordered ONE; -diazePAM 5 MG TAB As Ordered ONE; -oxyCODONE 5MG TAB As Ordered ONE
--- NOTE | 2017-01-24 00:34 | ECWPNPC ---
PATIENT NAME: ALEX GLYNN : 1985 GENDER: MALE VISIT DATE: 01/03/2017 DISCHARGE DATE: 01/03/17 1404 VISIT LOCKED DATE TIME: PHYSICIAN: ADITI GALLAGHER RESOURCE: ADITI GALLAGHER REASON FOR APPOINTMENT 1. POST PROCEDURE HISTORY OF PRESENT ILLNESS HISTORY OF PRESENT ILLNESS: PAIN THE PATIENT DESCRIBES THE PAIN... FALL RISK SCREENING: SCREENING :NO FALLS IN THE PAST YEAR TODAY'S VISIT: NOTES: S/P TPI TO LOW BACK COMPLETED ON 12/19/16. REPORTS DID HAVE GOOD RELIEF AFTER THE INJECTION BUT PAIN IS RETURNING IN THE LOS BACK. RATES PAIN TODAY 4/10. DESCRIBES PAIN SORE. DCS IS WORKING WELL HAS BEEN HAVING A PROBLEM WITH HAVING THE REMOTE COMMUNICATE TO THE GENERATOR. GROIN AREA PAIN IS WELL CONTROLLED WITH THIS. NOTES TIGHTNESS PVER MID AND LOW BACK. DOES NOT THINK THE TIZANIDINE WORKING WELL BEFORE. 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 IS CONCERNED ABOUT POSSIBLE DEPLOYMENT AND IF HE CAN DO THIS WITH HIS DCS IN PLACE. OVERALL VERY PLEASED WITH THE PAIN CONTROL WITH DCS IN GROIN AREA.. CURRENT MEDICATIONS TAKING OXYCODONE HCL 5 MG TABLET 1 TABLET ORALLY EVERY 4 HRS PRN FOR PAIN MDD2 TAKING GABAPENTIN 400 MG TABLET 1 CAPSULE ORALLY FOUR TIMES DAILY FOR PAIN MDD4 TAKING TIZANIDINE HCL 4 MG TABLET 1 TABLET NEEDED ORALLY BEFORE BEDTIME MAY REPEAT IN 4 HRS NOT-TAKING TYLENOL WITH CODEINE #3 300-30 MG TABLET 1 TABLET NEEDED ORALLY EVERY 6 HRS NOT-TAKING HYDROCODONE-ACETAMINOPHEN 5-325 MG TABLET 1 TO 2 TABLET NEEDED ORALLY FOR PAIN EVERY 6 HRS MDD6, NOTES: 07/03 10PM NOT-TAKING CLINDAMYCIN HCL 150 MG CAPSULE 1 CAPSULES ORALLY THREE TIMES DAILY, NOTES: NEVER TOOK NOT-TAKING IBUPROFEN 800 MG TABLET 1 TABLET ORALLY THREE TIMES A DAY, NOTES: PRN NOT-TAKING FISH OIL 1000 MG CAPSULE 1 CAPSULE ORALLY DAILY NOT-TAKING LEVAQUIN 500 MG TABLET 1 TABLET ORALLY ONCE A DAY NOT-TAKING CELEBREX 100 MG CAPSULE 1 CAPSULE ORALLY TWICE A DAY NOT-TAKING SUMATRIPTAN SUCCINATE 25 MG TABLET ORALLY NOT-TAKING TYLENOL 325 MG TABLET 1 TABLET NEEDED ORALLY EVERY 6 HRS NOT-TAKING KETOROLAC TROMETHAMINE 10 MG TABLET 1 TABLET NEEDED ORALLY EVERY 6 HRS NOT-TAKING ZANAFLEX 4 MG TABLET 1 TABLET NEEDED ORALLY EVERY 8 HRS MEDICATION LIST REVIEWED AND RECONCILED WITH THE PATIENT PAST MEDICAL HISTORY EPIDIDYMITIS ALLERGIES PENICILLIN (FOR ALLERGIES USE ONLY): HIVES: ALLERGY BEER: VOMITING/HIVES: ALLERGY VANCOMYCIN HCL: RED MAN SYNDROME: SIDE EFFECTS SURGICAL HISTORY TONSILLECTOMY 1988 ORAL SURGERY 1999 TESTICULAR REPAIR 2007 APPENDIX REMOVED 2007 VASECTOMY 2011 TEMPORARY PLACEMENT OF DCS 07/02/2016 PERMANENT DCS 09/24/16 HOSPITALIZATION/MAJOR DIAGNOSTIC PROCEDURE 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 CONSTITUTIONAL: ANY CHANGE IN YOUR MEDICAL CONDITION? NO . CHILLS NO . FEVER NO . INFECTION: DO YOU HAVE NEW INFECTIONS? NO . DO YOU HAVE HISTORY OF MRSA? NO . MUSCULOSKELETAL: ANY NEW PATTERNS OF PAIN OR NUMBNESS? NO, PT STATES TPI TO LEFT THORACIC AND LEFT LOWER BACK ON 12/19/16. PRE PROCEDURE PAIN WAS 5-6/10, POST PROCEDURE PAIN WAS 1/10. IN PAST FEW DAYS, PAIN STARTED CREEPING TO 4/10 . GASTROENTEROLOGY: ANY NEW CHANGE IN BOWEL CONTROL? NO . GENITOURINARY: ANY NEW CHANGE IN BLADDER CONTROL? NO . IS THERE A CHANCE YOU COULD BE ? NO . HEMATOLOGY/LYMPH: DO YOU TAKE ANY BLOOD THINNERS? (FOR EXAMPLE- COUMADIN, PLAVIX, AGGRENOX, PLATEL, PRADAXA, OR XARELTO) NO . WHEN WAS YOUR LAST DOSE? DATE: TIME: . NEUROLOGY: HAVE YOU FALLEN IN THE PAST 6 MONTHS? NO . ANY NEW EXTREMITY NUMBNESS OR WEAKNESS? NO . CARDIOLOGY: DO YOU HAVE A PACEMAKER OR DEFIBRILLATOR? NO . RESPIRATORY: SLEEP APNEA POSITIVE BUT NOT NEEDING CPAP . HAVE YOU BEEN SICK IN THE PAST WEEK? NO . FEVER NO . FLU LIKE SYMPTOMS? NO . COUGH NO . INTEGUMENTARY: DO YOU HAVE ANY RASHES OR OPEN SORES? NO . ALLERGIC/IMMUNO: ARE YOU ALLERGIC TO SHELLFISH OR IV DYE? NO . ANY NEW ALLERGIES? NO . PSYCHIATRIC: DO YOU HAVE THOUGHTS OF HURTING YOURSELF OR SOMEONE ELSE? NO . ARE YOU ABUSED, NEGLECTED, OR IN AN UNSAFE ENVIRONMENT? NO . ENDOCRINOLOGY: ARE YOU DIABETIC? NO . OTHER: DO YOU NEED ANY PRESCRIPTIONS? NO . IF YES, PLEASE LIST: ____ . ANY NEW PROBLEMS WITH YOUR MEDICATIONS? NO . WHEN DID YOU LAST EAT? ____ . WHEN DID YOU LAST DRINK? ____ . WHAT DID YOU LAST DRINK? ____ . NAME OF PERSON DRIVING YOU HOME? ____ . DO YOU HAVE ANY OTHER QUESTIONS OR CONCERNS NO . VITAL SIGNS WT 185 LBS, HT 69 IN, BMI 27.32 INDEX, BP 133/81 MM HG, HR 116 /MIN, RR 18 /MIN, TEMP 98.8 F, OXYGEN SAT % 96%, NA INITIALS SC 13:09, REVIEWED BY: EMANUEL. EXAMINATION GENERAL EXAMINATION: PSYCHALERT , ORIENTED X 3 , APPROPRIATE MOOD AND AFFECT , GOOD EYE CONTACT. LUNGS:CLEAR TO AUSCULTATION BILATERALLY, NO WHEEZES, RALES OR RHONCHI. HEART:HEART RATE REGULAR. MUSCULOSKELETAL:MUSCLE STRENGTH TESTING 5/5 BILATERAL UPPER AND LOWER EXTREMITIES. TRIGGER POINTS AND TIGHT FIBROUS BANDS IDENTIFIED OVER LUMBAR PARAVERTEBRAL MUSCLES. WELL HEALED SUGICAL INCISION OVER LUMAR SPINE . WELL HEALED INCISION OVER LEFT FLANK FOR DCS GENERATOR. NO TENDERNESS OVER GENERATOR. NO SPECIFIC SACRAL ILIAC JOINT TENDERNESS. SLOW TO RISE TO STANDING POSITION. . ASSESSMENTS NEURALGIA AND NEURITIS, UNSPECIFIED - M79.2 (PRIMARY) MYALGIA - M79.1 (PRIMARY) TREATMENT NEURALGIA AND NEURITIS, UNSPECIFIED STOP TIZANIDINE HCL TABLET, 4 MG, 1 TABLET NEEDED, ORALLY, BEFORE BEDTIME MAY REPEAT IN 4 HRS START BACLOFEN TABLET, 10 MG, 1/2 - 1 TABLET WITH FOOD OR MILK, ORALLY, TWICE A DAY, 30 DAY(S), 60, REFILLS 1 NOTES: FOLLOW UP WITH YOGA AND PT ON POST. PROCEDURE CODES FA211 ESTABILISHED PATIENT [facility] CHARGE DISPOSITION & COMMUNICATION FOLLOW UP 4-6 WEEKS (REASON: BACK/DCS FOLLOWUP) ELECTRONICALLY SIGNED BY ANIKET VANN ON 01/23/2017 AT 06:20 PM EDT DISCLAIMER : THIS IS A VISIT SUMMARY EXTRACTED FROM THE [employer] CHART. IT IS NOT A COPY OF THE [employer] PROGRESS NOTE. ELINA
== END ==
LOC: M PAIN 13:00
PROVIDERS: ATTEND Nurse Practitioner Family
DX: G89.29 Other chronic pain (principal); M79.2 Neuralgia and neuritis, unspecified; M79.1 Myalgia; Z88.0 Allergy status to penicillin; Z91.09 Other allergy status, other than to drugs and biological substances; Z88.1 Allergy status to other antibiotic agents; Z79.891 Long term (current) use of opiate analgesic; Z79.899 Other long term (current) drug therapy

== ENCOUNTER → 2017-01-31 | Outpatient (CLI) | payer OTHER ==
--- NOTE | 2017-02-19 02:36 | ECWPNPC ---
PATIENT NAME: ALEX GLYNN : 1985 GENDER: MALE VISIT DATE: 01/31/2017 DISCHARGE DATE: 01/31/17 1519 VISIT LOCKED DATE TIME: PHYSICIAN: ADITI GALLAGHER RESOURCE: ADITI GALLAGHER REASON FOR APPOINTMENT 1. GROIN HISTORY OF PRESENT ILLNESS HISTORY OF PRESENT ILLNESS: PAIN THE PATIENT DESCRIBES THE PAIN... FALL RISK SCREENING: SCREENING :NO FALLS IN THE PAST YEAR TODAY'S VISIT: NOTES: HAVING A SHARP PAIN AT SITE OF BATTERY WHEN TURNING ON UNIT. THIS IS A SQUEEZING AND STABBING RIGHT ALONG THE INCISION. THIS LASTS A MINUTE OR 2 AFTER THE STIM IS TURNED OFF. PHYSICAL THERAPY IS STRTCHING AND THIS MAY HAVE AGGGREVAYTED PAIN. BACK REMAINS STIFF. BACLOFEN HELPS BUT CAN NOT TAKE IT MUCH WOULD LIKE TIL WORK SCHED. MAY BE DEPLOYING IN NEAR FUTURE. . CURRENT MEDICATIONS TAKING OXYCODONE HCL 5 MG TABLET 1 TABLET ORALLY EVERY 4 HRS PRN FOR PAIN MDD2, NOTES: NOT TAKING MUCH TAKING GABAPENTIN 400 MG TABLET 1 CAPSULE ORALLY FOUR TIMES DAILY FOR PAIN MDD4 TAKING BACLOFEN 10 MG TABLET 1/2 - 1 TABLET WITH FOOD OR MILK ORALLY TWICE A DAY, NOTES: CANNOT TAKE WHEN WORKING TAKING BENADRYL 25 MG CAPSULE 1 CAPSULE NEEDED ORALLY EVERY 8 HRS NEEDED FOR RASH NOT-TAKING TYLENOL WITH CODEINE #3 300-30 MG TABLET 1 TABLET NEEDED ORALLY EVERY 6 HRS NOT-TAKING HYDROCODONE-ACETAMINOPHEN 5-325 MG TABLET 1 TO 2 TABLET NEEDED ORALLY FOR PAIN EVERY 6 HRS MDD6, NOTES: 07/03 10PM NOT-TAKING CLINDAMYCIN HCL 150 MG CAPSULE 1 CAPSULES ORALLY THREE TIMES DAILY, NOTES: NEVER TOOK NOT-TAKING IBUPROFEN 800 MG TABLET 1 TABLET ORALLY THREE TIMES A DAY, NOTES: PRN NOT-TAKING FISH OIL 1000 MG CAPSULE 1 CAPSULE ORALLY DAILY NOT-TAKING LEVAQUIN 500 MG TABLET 1 TABLET ORALLY ONCE A DAY NOT-TAKING CELEBREX 100 MG CAPSULE 1 CAPSULE ORALLY TWICE A DAY NOT-TAKING SUMATRIPTAN SUCCINATE 25 MG TABLET ORALLY NOT-TAKING TYLENOL 325 MG TABLET 1 TABLET NEEDED ORALLY EVERY 6 HRS NOT-TAKING KETOROLAC TROMETHAMINE 10 MG TABLET 1 TABLET NEEDED ORALLY EVERY 6 HRS NOT-TAKING ZANAFLEX 4 MG TABLET 1 TABLET NEEDED ORALLY EVERY 8 HRS PAST MEDICAL HISTORY EPIDIDYMITIS ALLERGIES PENICILLIN (FOR ALLERGIES USE ONLY): HIVES: ALLERGY BEER: VOMITING/HIVES: ALLERGY VANCOMYCIN HCL: RED MAN SYNDROME: SIDE EFFECTS REVIEW OF SYSTEMS REVIEWED BY: PROVIDER: ADITI LOVE . CONSTITUTIONAL: ANY CHANGE IN YOUR MEDICAL CONDITION? NO . CHILLS NO . FEVER NO . INFECTION: DO YOU HAVE NEW INFECTIONS? NO . DO YOU HAVE HISTORY OF MRSA? NO . MUSCULOSKELETAL: ANY NEW PATTERNS OF PAIN OR NUMBNESS? NO . GASTROENTEROLOGY: ANY NEW CHANGE IN BOWEL CONTROL? NO . GENITOURINARY: ANY NEW CHANGE IN BLADDER CONTROL? NO . IS THERE A CHANCE YOU COULD BE ? NO . HEMATOLOGY/LYMPH: DO YOU TAKE ANY BLOOD THINNERS? (FOR EXAMPLE- COUMADIN, PLAVIX, AGGRENOX, PLATEL, PRADAXA, OR XARELTO) NO . WHEN WAS YOUR LAST DOSE? DATE: TIME: . NEUROLOGY: HAVE YOU FALLEN IN THE PAST 6 MONTHS? NO . ANY NEW EXTREMITY NUMBNESS OR WEAKNESS? NO . CARDIOLOGY: DO YOU HAVE A PACEMAKER OR DEFIBRILLATOR? NO . RESPIRATORY: HAVE YOU BEEN SICK IN THE PAST WEEK? NO . FEVER NO . FLU LIKE SYMPTOMS? NO . COUGH NO . INTEGUMENTARY: DO YOU HAVE ANY RASHES OR OPEN SORES? NEW TATTTOO ABOUT 3 WEEKS AGO / RED RASH BEING TX WITH BENADRYL . ALLERGIC/IMMUNO: ARE YOU ALLERGIC TO SHELLFISH OR IV DYE? NO . ANY NEW ALLERGIES? NO . PSYCHIATRIC: DO YOU HAVE THOUGHTS OF HURTING YOURSELF OR SOMEONE ELSE? NO . ARE YOU ABUSED, NEGLECTED, OR IN AN UNSAFE ENVIRONMENT? NO . ENDOCRINOLOGY: ARE YOU DIABETIC? NO . OTHER: DO YOU NEED ANY PRESCRIPTIONS? NO . IF YES, PLEASE LIST: ____ . ANY NEW PROBLEMS WITH YOUR MEDICATIONS? NO . WHEN DID YOU LAST EAT? ____ . WHEN DID YOU LAST DRINK? ____ . WHAT DID YOU LAST DRINK? ____ . NAME OF PERSON DRIVING YOU HOME? ____ . DO YOU HAVE ANY OTHER QUESTIONS OR CONCERNS NEEDS NOTE FOR YOGA . VITAL SIGNS WT 180 LBS, HT 69 IN, BMI 26.58 INDEX, BP 135/76 MM HG, HR 70 /MIN, RR 18 /MIN, TEMP 98.2 F, OXYGEN SAT % 98, REVIEWED BY: NL. EXAMINATION GENERAL EXAMINATION: PSYCHALERT , ORIENTED X 3 , APPROPRIATE MOOD AND AFFECT , GOOD EYE CONTACT. LUNGS:CLEAR TO AUSCULTATION BILATERALLY, NO WHEEZES, RALES OR RHONCHI. HEART:HEART RATE REGULAR. MUSCULOSKELETAL:MUSCLE STRENGTH TESTING 5/5 BILATERAL UPPER AND LOWER EXTREMITIES. TRIGGER POINTS AND TIGHT FIBROUS BANDS IDENTIFIED OVER LUMBAR PARAVERTEBRAL MUSCLES. WELL HEALED SUGICAL INCISION OVER LUMAR SPINE . WELL HEALED INCISION OVER LEFT FLANK FOR DCS GENERATOR. NO TENDERNESS OVER GENERATOR. TENDERNESS TO PALPATION OVER L>R LUMBOSACRAL AXIS. . SLOW TO RISE TO STANDING POSITION. . ASSESSMENTS NEURALGIA AND NEURITIS, UNSPECIFIED - M79.2 (PRIMARY) MYALGIA - M79.1 (PRIMARY) LOW BACK PAIN - M54.5 OTHER CHRONIC PAIN - G89.29 TREATMENT NEURALGIA AND NEURITIS, UNSPECIFIED [facility] SPINE, LUMBAR W/O [id number],SUSAN M 02/07/2017 3:58:56 PM > HAS DORSALCOLUMN STIM. HAVING STABBING PAIN AT STIM ENTRY POINT TO EPIDURAL SPACE NOTES: NEEDS TO GET WITH SONAL VERONICA ABOUT CHECKING THE STIM. OK TO YOGA CONTINUE CURRENT MEDS - CALL IF SCRIPTS NEEDED. PROCEDURE CODES [id number] ESTABILISHED PATIENT [facility] FACILITY CHARGE DISPOSITION & COMMUNICATION FOLLOW UP 3-4 WEEKS (REASON: NEURITIS) ELECTRONICALLY SIGNED BY ANIKET VANN ON 02/18/2017 AT 06:08 PM EDT DISCLAIMER : THIS IS A VISIT SUMMARY EXTRACTED FROM THE [employer] CHART. IT IS NOT A COPY OF THE [employer] PROGRESS NOTE. ELINA
== END ==
LOC: M PAIN 14:15
PROVIDERS: ATTEND Nurse Practitioner Family
DX: G89.29 Other chronic pain (principal); R10.30 Lower abdominal pain, unspecified; M79.2 Neuralgia and neuritis, unspecified; M79.1 Myalgia; M54.5 Low back pain; Z88.0 Allergy status to penicillin; Z88.1 Allergy status to other antibiotic agents; Z91.048 Other nonmedicinal substance allergy status; Z79.891 Long term (current) use of opiate analgesic; Z79.899 Other long term (current) drug therapy

== ENCOUNTER → 2017-02-26 | Outpatient (CLI) | payer OTHER ==
--- NOTE | 2017-03-25 00:13 | ECWPNPC ---
PATIENT NAME: ALEX GLYNN : 1985 GENDER: MALE VISIT DATE: 02/26/2017 DISCHARGE DATE: 02/26/17 1604 VISIT LOCKED DATE TIME: PHYSICIAN: ADITI GALLAGHER RESOURCE: ADITI GALLAGHER REASON FOR APPOINTMENT 1. GROIN HISTORY OF PRESENT ILLNESS HISTORY OF PRESENT ILLNESS: PAIN THE PATIENT DESCRIBES THE PAIN... FALL RISK SCREENING: SCREENING :NO FALLS IN THE PAST YEAR TODAY'S VISIT: NOTES: RATES PAIN TODAY 5/10. NOTES PAIN IS CENTERED AT LOW BACK AND GROIN REGION. DID SPEAK WITH SONAL VERONICA/[employer] REP. HAS NOT YET HAD CT OF SPINE. . CURRENT MEDICATIONS TAKING OXYCODONE HCL 5 MG TABLET 1 TABLET ORALLY EVERY 4 HRS PRN FOR PAIN MDD2, NOTES: HAVENT TAKEN LATELY TAKING GABAPENTIN 400 MG TABLET 1 CAPSULE ORALLY FOUR TIMES DAILY FOR PAIN MDD4 TAKING BACLOFEN 10 MG TABLET 1 TABLET WITH FOOD OR MILK ORALLY TWICE A DAY, NOTES: CANNOT TAKE WHEN WORKING NOT-TAKING BENADRYL 25 MG CAPSULE 1 CAPSULE NEEDED ORALLY EVERY 8 HRS NEEDED FOR RASH NOT-TAKING TYLENOL WITH CODEINE #3 300-30 MG TABLET 1 TABLET NEEDED ORALLY EVERY 6 HRS NOT-TAKING HYDROCODONE-ACETAMINOPHEN 5-325 MG TABLET 1 TO 2 TABLET NEEDED ORALLY FOR PAIN EVERY 6 HRS MDD6, NOTES: 07/03 10PM NOT-TAKING CLINDAMYCIN HCL 150 MG CAPSULE 1 CAPSULES ORALLY THREE TIMES DAILY, NOTES: NEVER TOOK NOT-TAKING IBUPROFEN 800 MG TABLET 1 TABLET ORALLY THREE TIMES A DAY, NOTES: PRN NOT-TAKING FISH OIL 1000 MG CAPSULE 1 CAPSULE ORALLY DAILY NOT-TAKING LEVAQUIN 500 MG TABLET 1 TABLET ORALLY ONCE A DAY NOT-TAKING CELEBREX 100 MG CAPSULE 1 CAPSULE ORALLY TWICE A DAY NOT-TAKING SUMATRIPTAN SUCCINATE 25 MG TABLET ORALLY NOT-TAKING TYLENOL 325 MG TABLET 1 TABLET NEEDED ORALLY EVERY 6 HRS NOT-TAKING KETOROLAC TROMETHAMINE 10 MG TABLET 1 TABLET NEEDED ORALLY EVERY 6 HRS NOT-TAKING ZANAFLEX 4 MG TABLET 1 TABLET NEEDED ORALLY EVERY 8 HRS MEDICATION LIST REVIEWED AND RECONCILED WITH THE PATIENT PAST MEDICAL HISTORY EPIDIDYMITIS ALLERGIES PENICILLIN (FOR ALLERGIES USE ONLY): HIVES: ALLERGY BEER: VOMITING/HIVES: ALLERGY VANCOMYCIN HCL: RED MAN SYNDROME: SIDE EFFECTS SOCIAL HISTORY GENERAL: TOBACCO USE ARE YOU A:CURRENT SMOKER ARE YOU INTERESTED IN QUITTING?READY TO QUIT COUNSELED THE PATIENT ON TOBACCO USE, CESSATION [id number]/19/2017 PATIENT COUNSELED ON THE DANGERS OF TOBACCO USE AND URGED TO QUIT:12/19/2016 SMOKING CESSATION INFORMATION GIVEN11/28/2016 PAIN CLINIC PFS, CLERGY, PUBLIC HEALTH REFERRALS HAS THE PATIENT BEEN EDUCATED REGARDING HIS/HER PLAN OF CARE?YES HAS THE PATIENT BEEN EDUCATED REGARDING PAIN, THE RISK FOR PAIN, THE IMPORTANCE OF EFFECTIVE PAIN MANAGEMENT, AND THE PAIN ASSESSMENT PROCESS?YES PATIENT: ____. REVIEW OF SYSTEMS REVIEWED BY: PROVIDER: ADITI LOVE . CONSTITUTIONAL: ANY CHANGE IN YOUR MEDICAL CONDITION? NO . CHILLS NO . FEVER NO . INFECTION: DO YOU HAVE NEW INFECTIONS? NO . DO YOU HAVE HISTORY OF MRSA? NO . MUSCULOSKELETAL: ANY NEW PATTERNS OF PAIN OR NUMBNESS? NO . GASTROENTEROLOGY: ANY NEW CHANGE IN BOWEL CONTROL? NO . GENITOURINARY: ANY NEW CHANGE IN BLADDER CONTROL? NO . IS THERE A CHANCE YOU COULD BE ? NO . HEMATOLOGY/LYMPH: DO YOU TAKE ANY BLOOD THINNERS? (FOR EXAMPLE- COUMADIN, PLAVIX, AGGRENOX, PLATEL, PRADAXA, OR XARELTO) NO . WHEN WAS YOUR LAST DOSE? DATE: TIME: . NEUROLOGY: HAVE YOU FALLEN IN THE PAST 6 MONTHS? NO . ANY NEW EXTREMITY NUMBNESS OR WEAKNESS? NO . CARDIOLOGY: DO YOU HAVE A PACEMAKER OR DEFIBRILLATOR? NO . RESPIRATORY: HAVE YOU BEEN SICK IN THE PAST WEEK? NO . FEVER NO . FLU LIKE SYMPTOMS? NO . COUGH NO . INTEGUMENTARY: DO YOU HAVE ANY RASHES OR OPEN SORES? NO . ALLERGIC/IMMUNO: ARE YOU ALLERGIC TO SHELLFISH OR IV DYE? NO . ANY NEW ALLERGIES? NO . PSYCHIATRIC: DO YOU HAVE THOUGHTS OF HURTING YOURSELF OR SOMEONE ELSE? NO . ARE YOU ABUSED, NEGLECTED, OR IN AN UNSAFE ENVIRONMENT? NO . ENDOCRINOLOGY: ARE YOU DIABETIC? NO . OTHER: DO YOU NEED ANY PRESCRIPTIONS? NO . IF YES, PLEASE LIST: ____ . ANY NEW PROBLEMS WITH YOUR MEDICATIONS? NO . WHEN DID YOU LAST EAT? ____ . WHEN DID YOU LAST DRINK? ____ . WHAT DID YOU LAST DRINK? ____ . NAME OF PERSON DRIVING YOU HOME? ____ . DO YOU HAVE ANY OTHER QUESTIONS OR CONCERNS NO . VITAL SIGNS WT 180 LBS, HT 69 IN, BMI 26.58 INDEX, BP 142/79 MM HG, HR 119 /MIN, RR 18 /MIN, TEMP 98.9 F, OXYGEN SAT % 96%, NA INITIALS AW 1443, REVIEWED BY: KG. EXAMINATION GENERAL EXAMINATION: PSYCHALERT , ORIENTED X 3 , APPROPRIATE MOOD AND AFFECT . LUNGS:CLEAR TO AUSCULTATION BILATERALLY. HEART:HEART RATE REGULAR. ABDOMEN:BILATERAL TENDERNESS TO PALPATION OVER RIGHT > LEFT GROIN REGIONS. . MUSCULOSKELETAL:TRIGGER POINTS:, ELICITED WITH PALPATION OVER LUMBAR PARAVERTEBRAL MUSCLES AND INTO THE SECRUM. RESTRICTION OF ROM IN THIS AREA . JOINTS:BILATERAL, KNEE WITH AUDIBLE CREPITUS . ASSESSMENTS NEURALGIA AND NEURITIS, UNSPECIFIED - M79.2 (PRIMARY) MYALGIA - M79.1 (PRIMARY) LOW BACK PAIN - M54.5 OTHER CHRONIC PAIN - G89.29 TREATMENT NEURALGIA AND NEURITIS, UNSPECIFIED NOTES: CONTINUE CURRENT MEDSGET CT SCAN OF LUMBAR SPINEWILL TALK WITH SONAL VERONICA ABOUT CONCENTRATING STIM IN GROIN AND ISSUES WITH DEPLOYMENT. PROCEDURE CODES FA211 ESTABILISHED PATIENT [facility] CHARGE DISPOSITION & COMMUNICATION FOLLOW UP [address] SCAN (REASON: CHECK AUTH FOR CT LS SPINE) ELECTRONICALLY SIGNED BY ANIKET VANN ON 03/24/2017 AT 07:00 PM EDT DISCLAIMER : THIS IS A VISIT SUMMARY EXTRACTED FROM THE [employer] CHART. IT IS NOT A COPY OF THE [employer] PROGRESS NOTE. ELINA
== END ==
LOC: M PAIN 14:30
PROVIDERS: ATTEND Nurse Practitioner Family
DX: G89.29 Other chronic pain (principal); M79.2 Neuralgia and neuritis, unspecified; M54.5 Low back pain; F17.200 Nicotine dependence, unspecified, uncomplicated; Z88.0 Allergy status to penicillin; Z88.1 Allergy status to other antibiotic agents; Z91.048 Other nonmedicinal substance allergy status; Z79.891 Long term (current) use of opiate analgesic; Z79.899 Other long term (current) drug therapy

== ENCOUNTER → 2017-03-01 | Outpatient (CLI) | payer OTHER ==
--- NOTE | 2017-03-01 10:47 | REP ---
CT LUMBAR SPINE WITHOUT CONTRAST: HISTORY: Neuritis. COMPARISON: MR 03/30/2016. There is no disc bulge or herniation at the L1-2, L2-3 and L3-4 and L5-S1 levels. The nerves exit the neural foramina without compression. A diffuse disc bulge is present at the L3-4 level. There is minimal compression of the thecal sac. The L3 nerves exit the neural foramina without compression. A diffuse disc bulge is present at the L4-5 level. There is minimal compression of the thecal sac. The L4 nerves exit the neural foramina without compression. The intervertebral discs and vertebral bodies are normal in height. There is no subluxation. A neurostimulator enters the spinal canal at the T12-L1 level. IMPRESSION: Diffuse disc bulges at the L3-4 and L4-5 levels with minimal thecal sac compression. There is no significant change compared to the previous study. Signed by Quentin Mckinney MD 03/01/2017 10:52 A
== END ==
LOC: M RAD 09:41
PROVIDERS: ATTEND Nurse Practitioner Family
DX: G62.9 Polyneuropathy, unspecified (principal)

== ENCOUNTER → 2017-03-26 | Outpatient (CLI) | payer OTHER ==
--- NOTE | 2017-03-28 00:02 | ECWPNPC ---
PATIENT NAME: ALEX GLYNN : 1985 GENDER: MALE VISIT DATE: 03/26/2017 DISCHARGE DATE: 03/26/17 1637 VISIT LOCKED DATE TIME: PHYSICIAN: ADITI GALLAGHER RESOURCE: ADITI GALLAGHER REASON FOR APPOINTMENT 1. MRI REVIEW HISTORY OF PRESENT ILLNESS HISTORY OF PRESENT ILLNESS: PAIN THE PATIENT DESCRIBES THE PAIN... FALL RISK SCREENING: SCREENING :NO FALLS IN THE PAST YEAR TODAY'S VISIT: NOTES: RATES PAIN TODAY 4/10. DESCRIBES PAIN SHARP. PAIN IS CENTERED AT GROIN AREA, KNEES, AND LOW BACK.BACK PAIN IS IN 2 LOCATIONS - LOW ACROSS THE SACRUM, AND AT THE INSERTION SITE FOR THE DCS. 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 PAIN IS DISRUPTING SLEEP. BACLOFEN IS NOT EFFECTIVE IT USED TO BE WHEN FIRST STARTED A FEW WEEKS AGO. IS STILL NOT GOTTEN AN ANSWER ON MED BOARD PROCESS FROM [employer]. [facility] SAYS NO, [facility] SAYS YES. STILL NOT ABLE TO USE DORSAL COLUMN STIMULATOR - TRIED HIGH FREQUENCY SETTING. NO IN PAIN CONTROL IN THE GROIN BUT ALSO NO IN PAIN AT INSERTION SITE. WORST PAIN IS BACK AND GROIN. DCS IS NOT FUNCTIONING - THIS PREVIOUSLY WAS WORKING VERY WELL BUT CAN NOT TURN IT ON WITHOUT SPINE INSERTION SITE PAIN. HAS BEEN HAVING INTENSING HEADACHES WHICH START AT THE BACK OF THE HEAD AND RADIATES TO THE SHOULDERS, HAS HAD SOME VISUAL SCOTOMA WHEN PAIN IS AT ITS WORST, POSITIVE PHONOPHOBIA AND PHOTOPHOBIA. HAD PREVIOUS MIGRAINES AND SAW NEUROLOGY ON POST. WAS TREATED WITH TORODOL AND FISH OIL. . CURRENT MEDICATIONS TAKING OXYCODONE HCL 5 MG TABLET 1 TABLET ORALLY EVERY 4 HRS PRN FOR PAIN MDD2, NOTES: HAVENT TAKEN LATELY TAKING BACLOFEN 10 MG TABLET 1 TABLET WITH FOOD OR MILK ORALLY TWICE A DAY, NOTES: CANNOT TAKE WHEN WORKING NOT-TAKING TYLENOL 325 MG TABLET 1 TABLET NEEDED ORALLY EVERY 6 HRS NOT-TAKING TYLENOL WITH CODEINE #3 300-30 MG TABLET 1 TABLET NEEDED ORALLY EVERY 6 HRS NOT-TAKING HYDROCODONE-ACETAMINOPHEN 5-325 MG TABLET 1 TO 2 TABLET NEEDED ORALLY FOR PAIN EVERY 6 HRS MDD6, NOTES: 07/03 10PM NOT-TAKING IBUPROFEN 800 MG TABLET 1 TABLET ORALLY THREE TIMES A DAY, NOTES: PRN NOT-TAKING GABAPENTIN 400 MG TABLET 1 CAPSULE ORALLY FOUR TIMES DAILY FOR PAIN MDD4 NOT-TAKING FISH OIL 1000 MG CAPSULE 1 CAPSULE ORALLY DAILY NOT-TAKING BENADRYL 25 MG CAPSULE 1 CAPSULE NEEDED ORALLY EVERY 8 HRS NEEDED FOR RASH DISCONTINUED CLINDAMYCIN HCL 150 MG CAPSULE 1 CAPSULES ORALLY THREE TIMES DAILY, NOTES: NEVER TOOK DISCONTINUED LEVAQUIN 500 MG TABLET 1 TABLET ORALLY ONCE A DAY DISCONTINUED CELEBREX 100 MG CAPSULE 1 CAPSULE ORALLY TWICE A DAY DISCONTINUED SUMATRIPTAN SUCCINATE 25 MG TABLET ORALLY DISCONTINUED KETOROLAC TROMETHAMINE 10 MG TABLET 1 TABLET NEEDED ORALLY EVERY 6 HRS DISCONTINUED ZANAFLEX 4 MG TABLET 1 TABLET NEEDED ORALLY EVERY 8 HRS MEDICATION LIST REVIEWED AND RECONCILED WITH THE PATIENT PAST MEDICAL HISTORY EPIDIDYMITIS ALLERGIES PENICILLIN (FOR ALLERGIES USE ONLY): HIVES: ALLERGY BEER: VOMITING/HIVES: ALLERGY VANCOMYCIN HCL: RED MAN SYNDROME: SIDE EFFECTS SURGICAL HISTORY TONSILLECTOMY 1988 ORAL SURGERY 1999 TESTICULAR REPAIR 2007 APPENDIX REMOVED 2007 VASECTOMY 2011 TEMPORARY PLACEMENT OF DCS 07/02/2016 PERMANENT DCS 09/24/16 SOCIAL HISTORY GENERAL: TOBACCO USE ARE YOU A:CURRENT SMOKER ARE YOU INTERESTED IN QUITTING?READY TO QUIT COUNSELED THE PATIENT ON TOBACCO USE, CESSATION [id number]/19/2017 PATIENT COUNSELED ON THE DANGERS OF TOBACCO USE AND URGED TO QUIT:12/19/2016 SMOKING CESSATION INFORMATION GIVEN11/28/2016 GAVE INFO ON [facility] CLASSES FOR HIM TO CALL CAFFEINE CAFFEINE USE?YES 6 LARGE CUPS, 3 ENERGY DRINKS, 3 SODAS DAILY LEARNING BARRIERS / SPECIAL NEEDS BARRIERS TO LEARNING?NO VISION IMPAIRED?NO COGNITIVELY IMPAIRED?NO READINESS TO LEARN?YES LEARNING PREFERENCES?NO LEARNING CAPABILITIES PRESENT?YES EMOTIONAL BARRIERS?NO SPECIAL DEVICES?NO PAIN CLINIC PFS, CLERGY, PUBLIC HEALTH REFERRALS HAS THE PATIENT BEEN EDUCATED REGARDING HIS/HER PLAN OF CARE?YES HAS THE PATIENT BEEN EDUCATED REGARDING PAIN, THE RISK FOR PAIN, THE IMPORTANCE OF EFFECTIVE PAIN MANAGEMENT, AND THE PAIN ASSESSMENT PROCESS?YES PATIENT: ____. ADVANCE DIRECTIVES HEALTH CARE PROXY?NO WOULD YOU LIKE MORE INFORMATION?NO HOSPITALIZATION/MAJOR DIAGNOSTIC PROCEDURE 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 CONSTITUTIONAL: ANY CHANGE IN YOUR MEDICAL CONDITION? NO . CHILLS NO . FEVER NO . INFECTION: DO YOU HAVE NEW INFECTIONS? NO . DO YOU HAVE HISTORY OF MRSA? NO . MUSCULOSKELETAL: ANY NEW PATTERNS OF PAIN OR NUMBNESS? NO . GASTROENTEROLOGY: ANY NEW CHANGE IN BOWEL CONTROL? NO . GENITOURINARY: ANY NEW CHANGE IN BLADDER CONTROL? NO . IS THERE A CHANCE YOU COULD BE ? NO . HEMATOLOGY/LYMPH: DO YOU TAKE ANY BLOOD THINNERS? (FOR EXAMPLE- COUMADIN, PLAVIX, AGGRENOX, PLATEL, PRADAXA, OR XARELTO) NO . WHEN WAS YOUR LAST DOSE? DATE: TIME: . NEUROLOGY: HAVE YOU FALLEN IN THE PAST 6 MONTHS? NO . ANY NEW EXTREMITY NUMBNESS OR WEAKNESS? NO . CARDIOLOGY: DO YOU HAVE A PACEMAKER OR DEFIBRILLATOR? NO . RESPIRATORY: HAVE YOU BEEN SICK IN THE PAST WEEK? NO . FEVER NO . FLU LIKE SYMPTOMS? NO . COUGH NO . INTEGUMENTARY: DO YOU HAVE ANY RASHES OR OPEN SORES? NO . ALLERGIC/IMMUNO: ARE YOU ALLERGIC TO SHELLFISH OR IV DYE? NO . ANY NEW ALLERGIES? NO . PSYCHIATRIC: DO YOU HAVE THOUGHTS OF HURTING YOURSELF OR SOMEONE ELSE? NO . ARE YOU ABUSED, NEGLECTED, OR IN AN UNSAFE ENVIRONMENT? NO . ENDOCRINOLOGY: ARE YOU DIABETIC? NO . OTHER: DO YOU NEED ANY PRESCRIPTIONS? YES . IF YES, PLEASE LIST: ____ . ANY NEW PROBLEMS WITH YOUR MEDICATIONS? NO . WHEN DID YOU LAST EAT? ____ . WHEN DID YOU LAST DRINK? ____ . WHAT DID YOU LAST DRINK? ____ . NAME OF PERSON DRIVING YOU HOME? ____ . DO YOU HAVE ANY OTHER QUESTIONS OR CONCERNS CURRENT MEDICATION NO LONGER RELIEVES THE PAIN . VITAL SIGNS WT 180 LBS, HT 69 IN, BMI 26.58 INDEX, BP 117/72 MM HG, HR 66 /MIN, RR 18 /MIN, TEMP 98.1 F, OXYGEN SAT % 97%, NA INITIALS SC 15:12, REVIEWED BY: NL. EXAMINATION GENERAL EXAMINATION: GENERAL APPEARANCE:COLOR PALE. PSYCHAPPEARS VERY UNCOMFORTABLE , ALERT , ORIENTED X 3 , . LUNGS:CLEAR TO AUSCULTATION BILATERALLY. HEART:HEART RATE REGULAR. ABDOMEN:TENDER OVER ILIOINGUINAL REGION BILATERALLY.. MUSCULOSKELETAL:POSTURE HELD STIFFLY. POINT TENDERNESS OVER FACETS AND PARASPINOUS MUSCLES AT THE T11 THROUGH L2-3 LEVEL AND OVER THE LUMBAR PARAVERTEBRAL MUSCLES. TENDERNESS ALSO PRESENT OVER THE SACUM. SLOW AND WITH DIFFICULTY RISING TO UPRIGHT STANDING POSITION. . ASSESSMENTS NEURALGIA AND NEURITIS, UNSPECIFIED - M79.2 (PRIMARY) MYALGIA - M79.1 (PRIMARY) LOW BACK PAIN - M54.5 OTHER CHRONIC PAIN - G89.29 TREATMENT NEURALGIA AND NEURITIS, UNSPECIFIED REFILL BACLOFEN TABLET, 20 MG, 1 TABLET WITH FOOD OR MILK, ORALLY, TWICE A DAY, 30 DAYS, 60 TABLET, REFILLS 1 START KETOROLAC TROMETHAMINE TABLET, 10 MG, 1 TABLET WITH FOOD OR MILK NEEDED, ORALLY, EVERY 6 HRS, 5 DAY(S), 20, REFILLS 0 CONTINUE GABAPENTIN TABLET, 400 MG, 1 CAPSULE, ORALLY, FOUR TIMES DAILY FOR PAIN MDD4 STOP TYLENOL WITH CODEINE #3 TABLET, 300-30 MG, 1 TABLET NEEDED, ORALLY, EVERY 6 HRS STOP HYDROCODONE-ACETAMINOPHEN TABLET, 5-325 MG, 1 TO 2 TABLET NEEDED, ORALLY FOR PAIN, EVERY 6 HRS MDD6, NOTES: 07/03 10PM INJECTION FACET JOINT/NERVE LUMBAR ADITI MARSH 03/26/2017 4:27:37 PM > BILATERAL THERAPEUTIC LUMBAR FACET BLOCK AT L1-2, L2-3 AND L3-4 NOTES: PAPER SCRIPT FOR [employer] SAL[employer] CALL ME TO DISCUSS TREATMENT PLAN AT [phone] I WILL ALSO TALK TO PA ABOUT THE CYMBALTA. CLINICAL NOTES: [employer] [facility] REVIEWED AND DEMNOSTRATES COMPLLIANCE. REF # [id number]. DR FUNEZ CAME TO ROOM, EXAMINED PATIENT AND DISCUSSED TREATMENT OPTIONS. PREVENTIVE MEDICINE REVIEWED PRE PROCEDURE CARE WITH PT EXPRESSING UNDERSTANDING OF ALL. PROCEDURE CODES FA211 ESTABILISHED PATIENT [facility] CHARGE DISPOSITION & COMMUNICATION FOLLOW UP AFTER INJECTION (REASON: ERIC THERAPEUTIC LUMBAR FACET BLOCK AT L1-2, L2-3 AND L3-4 BILATERAL) ELECTRONICALLY SIGNED BY ANIKET VANN ON 03/27/2017 AT 05:55 PM EDT DISCLAIMER : THIS IS A VISIT SUMMARY EXTRACTED FROM THE [employer] CHART. IT IS NOT A COPY OF THE [employer] PROGRESS NOTE. MTDD
== END ==
LOC: M PAIN 14:45
PROVIDERS: ATTEND Nurse Practitioner Family
DX: G89.29 Other chronic pain (principal); M79.2 Neuralgia and neuritis, unspecified; M54.5 Low back pain; M79.1 Myalgia; F17.210 Nicotine dependence, cigarettes, uncomplicated; Z88.0 Allergy status to penicillin; Z88.1 Allergy status to other antibiotic agents; Z91.048 Other nonmedicinal substance allergy status; Z79.899 Other long term (current) drug therapy

== ENCOUNTER → 2017-04-15 | Outpatient (CLI) | payer OTHER ==
[~2017-04-15] MED LIST changes: +BUPIVACAINE HCL 0.25% 30 ML VIAL As Ordered ONE; +ISOVUE-M 300 61% 15ML VIAL (Q9967) As Ordered ONE; +LIDOCAINE 1% SDV INJ 30 ML VIAL As Ordered ONE; +TRIAMCINOLONE ACETONIDE SUSP 40 MG/ML VIAL (J3301) As Ordered ONE; +diazePAM 5 MG TAB As Ordered ONE; +oxyCODONE 5MG TAB As Ordered ONE
--- NOTE | 2017-04-15 17:38 | REP ---
C-ARM VIEWS THORACOLUMBAR REGION: CLINICAL HISTORY: Pain. Four C-ARM views of the thoracolumbar spine region are performed. Two needle on the right in the lumbar region and two needle on the left in the lumbar region visualized during facet injection by Dr. Engle. Two metallic leads are seen in the lower thoracic region. 28 seconds of fluoroscopy time was utilized. Signed by Oli Shelby MD 04/16/2017 01:22 P
--- NOTE | 2017-04-29 | ECWPNPC ---
PATIENT NAME: ALEX GLYNN : 1985 GENDER: MALE VISIT DATE: 04/15/2017 DISCHARGE DATE: 04/15/17 1411 VISIT LOCKED DATE TIME: PHYSICIAN: BECKY FUNEZ RESOURCE: BECKY FUNEZ REASON FOR APPOINTMENT 1. THERAPEUTIC LUMBAR FACET BLOCK HISTORY OF PRESENT ILLNESS HISTORY OF PRESENT ILLNESS: PAIN THE PATIENT DESCRIBES THE PAIN... FALL RISK SCREENING: SCREENING :NO FALLS IN THE PAST YEAR CURRENT MEDICATIONS TAKING OXYCODONE HCL 5 MG TABLET 1 TABLET ORALLY EVERY 4 HRS PRN FOR PAIN MDD2, NOTES: HAVENT TAKEN LATELY TAKING BACLOFEN 20 MG TABLET 1 TABLET WITH FOOD OR MILK ORALLY TWICE A DAY, NOTES: 04-14-17 2100 TAKING KETOROLAC TROMETHAMINE 10 MG TABLET 1 TABLET WITH FOOD OR MILK NEEDED ORALLY EVERY 6 HRS, NOTES: NOT LATELY TAKING TYLENOL 325 MG TABLET 1 TABLET NEEDED ORALLY EVERY 6 HRS, NOTES: NOT LATEL TAKING IBUPROFEN 800 MG TABLET 1 TABLET ORALLY THREE TIMES A DAY, NOTES: NOT LATELY TAKING FISH OIL 1000 MG CAPSULE 1 CAPSULE ORALLY DAILY, NOTES: NOT LATELY TAKING BENADRYL 25 MG CAPSULE 1 CAPSULE NEEDED ORALLY EVERY 8 HRS NEEDED FOR RASH, NOTES: NOT LATELY NOT-TAKING GABAPENTIN 400 MG TABLET 1 CAPSULE ORALLY FOUR TIMES DAILY FOR PAIN MDD4 MEDICATION LIST REVIEWED AND RECONCILED WITH THE PATIENT PAST MEDICAL HISTORY EPIDIDYMITIS ALLERGIES PENICILLIN (FOR ALLERGIES USE ONLY): HIVES: ALLERGY BEER: VOMITING/HIVES: ALLERGY VANCOMYCIN HCL: RED MAN SYNDROME: SIDE EFFECTS SOCIAL HISTORY GENERAL: TOBACCO USE ARE YOU A:CURRENT SMOKER ARE YOU INTERESTED IN QUITTING?READY TO QUIT COUNSELED THE PATIENT ON TOBACCO USE, CESSATION [id number]/19/2017 PATIENT COUNSELED ON THE DANGERS OF TOBACCO USE AND URGED TO QUIT:12/19/2016 SMOKING CESSATION INFORMATION GIVEN11/28/2016 GAVE INFO ON [facility] CLASSES FOR HIM TO CALL CAFFEINE CAFFEINE USE?YES 6 LARGE CUPS, 3 ENERGY DRINKS, 3 SODAS DAILY LEARNING BARRIERS / SPECIAL NEEDS BARRIERS TO LEARNING?NO VISION IMPAIRED?NO COGNITIVELY IMPAIRED?NO READINESS TO LEARN?YES LEARNING PREFERENCES?NO LEARNING CAPABILITIES PRESENT?YES EMOTIONAL BARRIERS?NO SPECIAL DEVICES?NO PAIN CLINIC PFS, CLERGY, PUBLIC HEALTH REFERRALS HAS THE PATIENT BEEN EDUCATED REGARDING HIS/HER PLAN OF CARE?YES HAS THE PATIENT BEEN EDUCATED REGARDING PAIN, THE RISK FOR PAIN, THE IMPORTANCE OF EFFECTIVE PAIN MANAGEMENT, AND THE PAIN ASSESSMENT PROCESS?YES PATIENT: ____. ADVANCE DIRECTIVES HEALTH CARE PROXY?NO WOULD YOU LIKE MORE INFORMATION?NO REVIEW OF SYSTEMS REVIEWED BY: PROVIDER: . CONSTITUTIONAL: ANY CHANGE IN YOUR MEDICAL CONDITION? NO . CHILLS NO . FEVER NO . INFECTION: DO YOU HAVE NEW INFECTIONS? NO . DO YOU HAVE HISTORY OF MRSA? NO . MUSCULOSKELETAL: ANY NEW PATTERNS OF PAIN OR NUMBNESS? NO . GASTROENTEROLOGY: ANY NEW CHANGE IN BOWEL CONTROL? NO . GENITOURINARY: ANY NEW CHANGE IN BLADDER CONTROL? NO . IS THERE A CHANCE YOU COULD BE ? NO . HEMATOLOGY/LYMPH: DO YOU TAKE ANY BLOOD THINNERS? (FOR EXAMPLE- COUMADIN, PLAVIX, AGGRENOX, PLATEL, PRADAXA, OR XARELTO) NO . WHEN WAS YOUR LAST DOSE? DATE: TIME: . NEUROLOGY: HAVE YOU FALLEN IN THE PAST 6 MONTHS? NO . ANY NEW EXTREMITY NUMBNESS OR WEAKNESS? NO . CARDIOLOGY: DO YOU HAVE A PACEMAKER OR DEFIBRILLATOR? NO . RESPIRATORY: HAVE YOU BEEN SICK IN THE PAST WEEK? NO . FEVER NO . FLU LIKE SYMPTOMS? NO . COUGH NO . INTEGUMENTARY: DO YOU HAVE ANY RASHES OR OPEN SORES? NO . ALLERGIC/IMMUNO: ARE YOU ALLERGIC TO SHELLFISH OR IV DYE? NO . ANY NEW ALLERGIES? NO . PSYCHIATRIC: DO YOU HAVE THOUGHTS OF HURTING YOURSELF OR SOMEONE ELSE? NO . ARE YOU ABUSED, NEGLECTED, OR IN AN UNSAFE ENVIRONMENT? NO . ENDOCRINOLOGY: ARE YOU DIABETIC? NO . OTHER: DO YOU NEED ANY PRESCRIPTIONS? NO . IF YES, PLEASE LIST: ____ . ANY NEW PROBLEMS WITH YOUR MEDICATIONS? NO . WHEN DID YOU LAST EAT? LAST NIGHT . WHEN DID YOU LAST DRINK? LAST NIGHT . WHAT DID YOU LAST DRINK? SODA . NAME OF PERSON DRIVING YOU HOME? GAIL . DO YOU HAVE ANY OTHER QUESTIONS OR CONCERNS NO . VITAL SIGNS WT 180 LBS, HT 69 IN, BMI 26.58 INDEX, BP 121/86 MM HG, HR 72 /MIN, RR 18 /MIN, TEMP 98.4 F, OXYGEN SAT % 97%, NA INITIALS SC 11:44, REVIEWED BY: LS. ASSESSMENTS SPONDYLOSIS OF LUMBAR REGION WITHOUT MYELOPATHY OR RADICULOPATHY - M47.816 (PRIMARY) PROCEDURES PN LUMBAR FACET BLOCK THERAPEUTIC PRE PROCEDURE DIAGNOSIS LUMBAR SPONDYLOSIS POST PROCEDURE DIAGNOSIS LUMBAR SPONDYLOSIS PROCEDURE BILATERAL L1-L2 AND BILATERAL L2-L3 LUMBAR FACET THERAPEUTIC BLOCK SURGEON DR. BECKY FUNEZ TUBE LANCER NONE ANESTHESIA LOCAL PRE PROCEDURE NOTE THE PATIENT HAS A HISTORY OF CHRONIC LOW BACK PAIN. I EVALUATE THE PATIENT AND REVIEWED THE CHART. I WENT OVER THE RISKS, ALTERNATIVES, AND BENEFITS ASSOCIATED WITH THIS PROCEDURE. THE PATIENT WOULD LIKE TO PROCEED AND GIVE CONSENT TO PERFORMED THE PROCEDURE. THE PATIENT DENIES UNEXPLAINABLE WEIGHT LOSS, FEVER, CHILLS, OR NEW CHANGES IN URINARY OR BOWEL CONTROL DESCRIPTION OF PROCEDURE THE PATIENT WAS BROUGHT TO THE PROCEDURE ROOM AND PLACED IN THE PRONE POSITION. THE LUMBOSACRAL AREA WAS CLEANED WITH CHLORAPREP SOLUTION AND DRAPED ASEPTICALLY. THE PROCEDURE WAS DONE UNDER STERILE CONDITIONS. I CHECKED LATERALITY AND THE LEVEL WHERE THE PROCEDURE WAS GOING TO BE PERFORMED WITH THE PATIENT AND THE SUPPORTING STAFF AT THE MOMENT OF THE TIME OUT IN THE PROCEDURE ROOM. UNDER FLUOROSCOPIC GUIDANCE, THE TARGET POINT WAS SELECTED AT THE RIGHT AND LEFT L1-L2 AND RIGHT AND LEFT L2-L3 FACET JOINT. TARGET POINT WAS SELECTED AFTER LATERAL ROTATION AND TILT OF THE MAGNIFIER OF THE C-ARM. LIDOCAINE 0.5% WAS USED TO NUMB THE SKIN AND THE SUBCUTANEOUS TISSUE BELOW IT. SPINAL NEEDLES, 22-GAUGE, WERE ADVANCED UNDER FLUOROSCOPIC GUIDANCE AND FOLLOWING PATIENT FEEDBACK UNTIL THE TARGETS WERE TOUCHED. THE POSITION OF THE NEEDLES WAS VERIFIED WITH AP AND LATERAL VIEWS. AFTER PROPER POSITION OF THE NEEDLES WAS ACHIEVED, ISOVUE-M DYE 30% 0.1 ML WAS INJECTED SHOWING ADEQUATE SPREAD OF THE DYE. THEN A SOLUTION OF 1.9 ML OF BUPIVACAINE 0.125% OF KENALOG 10 MG WAS INJECTED AT EACH SITE. THERE WAS NO EVIDENCE OF BLOOD, PARESTHESIA OR CEREBROSPINAL FLUID DURING THE PROCEDURE. THE PATIENT WAS SENT TO THE RECOVERY ROOM. THE PATIENT WAS MOVING THE EXTREMITIES AND DOING WELL. THERE WAS NO COMPLICATION DURING THE PROCEDURE. FLUOROSCOPY TIME WAS 28 SECONDS POST PROCEDURE NOTE THE PATIENT WILL BE SEEN IN A FOLLOW UP IN THE NEXT FEW WEEKS. INSTRUCTIONS WERE GIVEN, QUESTIONS WERE ANSWERED, AND THE PATIENT EXPRESSED UNDERSTANDING AND AGREES WITH THE PLAN. I, MAURY VAZQUEZ, DOCUMENTED THE ABOVE INFORMATION ACTING A SCRIBE FOR DR. FUNEZ. I HAVE REVIEWED THE ABOVE DOCUMENT, WRITTEN BY MAURY EDMONDS AND I VERIFY THAT IT IS ACCURATE. DIAGNOSTIC IMAGING [facility] FACET BLOCK (PAIN)[id number] PROCEDURE CODES 70952 INJ PARAVERT F JNT L/S 1 LEV, MODIFIERS: 50 [id number] INJ PARAVERT F JNT L/S 2 LEV, MODIFIERS: 50 [id number] RADXPS IN END [id number] PXD DISPOSITION & COMMUNICATION FOLLOW UP 3 WEEKS ELECTRONICALLY SIGNED BY BECKY FUNEZ MD ON 04/28/2017 AT 04:36 PM EST DISCLAIMER : THIS IS A VISIT SUMMARY EXTRACTED FROM THE [employer] CHART. IT IS NOT A COPY OF THE [employer] PROGRESS NOTE. MTDD
== END ==
LOC: M PAIN 11:30
PROVIDERS: ATTEND Anesthesiology
DX: G89.29 Other chronic pain (principal); M47.816 Spondylosis without myelopathy or radiculopathy, lumbar region; F17.210 Nicotine dependence, cigarettes, uncomplicated; Z79.891 Long term (current) use of opiate analgesic; Z79.899 Other long term (current) drug therapy; Z88.0 Allergy status to penicillin; Z88.1 Allergy status to other antibiotic agents; Z91.018 Allergy to other foods
CPT/HCPCS: 64493; 64494; J3301; Q9967

== ENCOUNTER → 2017-05-15 | Outpatient (CLI) | payer OTHER | LOC: M PAIN 15:15 | DX: G89.29 Other chronic pain (principal); M47.816 Spondylosis without myelopathy or radiculopathy, lumbar region; M79.2 Neuralgia and neuritis, unspecified; F17.210 Nicotine dependence, cigarettes, uncomplicated; M79.1 Myalgia; Z79.891 Long term (current) use of opiate analgesic; Z79.1 Long term (current) use of non-steroidal anti-inflammatories (NSAID); Z79.899 Other long term (current) drug therapy; Z88.0 Allergy status to penicillin; Z88.1 Allergy status to other antibiotic agents; Z91.048 Other nonmedicinal substance allergy status | CPT/HCPCS: G0463 ==

== ENCOUNTER → 2017-06-11 | Outpatient (CLI) | payer OTHER | LOC: M PAIN 10:30 | DX: M47.816 Spondylosis without myelopathy or radiculopathy, lumbar region (principal); M79.2 Neuralgia and neuritis, unspecified; M79.1 Myalgia; F17.210 Nicotine dependence, cigarettes, uncomplicated; Z79.891 Long term (current) use of opiate analgesic; Z79.899 Other long term (current) drug therapy; Z88.0 Allergy status to penicillin; Z88.1 Allergy status to other antibiotic agents; Z91.018 Allergy to other foods | CPT/HCPCS: G0463 ==

== ENCOUNTER → 2017-07-12 | Outpatient (CLI) | payer OTHER | LOC: M PAIN 10:00 | DX: M47.816 Spondylosis without myelopathy or radiculopathy, lumbar region (principal); G57.80 Other specified mononeuropathies of unspecified lower limb; M79.1 Myalgia; Z79.891 Long term (current) use of opiate analgesic; Z79.899 Other long term (current) drug therapy; Z72.0 Tobacco use; Z88.0 Allergy status to penicillin; Z88.1 Allergy status to other antibiotic agents; Z88.8 Allergy status to other drugs, medicaments and biological substances; Z91.048 Other nonmedicinal substance allergy status | CPT/HCPCS: G0463 ==

== ENCOUNTER → 2017-07-15 | Outpatient (CLI) | payer OTHER | LOC: M PAIN 15:30 | DX: M79.2 Neuralgia and neuritis, unspecified (principal); F17.210 Nicotine dependence, cigarettes, uncomplicated; Z79.891 Long term (current) use of opiate analgesic; Z79.899 Other long term (current) drug therapy; Z88.0 Allergy status to penicillin; Z88.1 Allergy status to other antibiotic agents; Z88.8 Allergy status to other drugs, medicaments and biological substances; Z91.018 Allergy to other foods | CPT/HCPCS: G0463 ==

== ENCOUNTER → 2017-07-29 | Outpatient (CLI) | payer OTHER | LOC: M PAIN 10:30 | DX: G89.29 Other chronic pain (principal); G57.80 Other specified mononeuropathies of unspecified lower limb; F17.210 Nicotine dependence, cigarettes, uncomplicated; Z79.891 Long term (current) use of opiate analgesic; Z79.899 Other long term (current) drug therapy; Z79.1 Long term (current) use of non-steroidal anti-inflammatories (NSAID); Z88.0 Allergy status to penicillin; Z88.1 Allergy status to other antibiotic agents; Z88.8 Allergy status to other drugs, medicaments and biological substances; Z91.018 Allergy to other foods | CPT/HCPCS: G0463 ==

== ENCOUNTER → 2017-08-07 | Outpatient (CLI) | payer OTHER | LOC: M PAIN 15:30 | DX: Z53.29 Procedure and treatment not carried out because of patient's decision for other reasons (principal) ==

== ENCOUNTER → 2017-10-29 | Outpatient (CLI) | payer OTHER ==
[~2017-10-29] MED LIST changes: -BUPIVACAINE HCL 0.25% 30 ML VIAL As Ordered ONE; -GABA-279 PO; -GABA-282 PO; +ISOVUE-370 76% 100ML VIAL (Q9967) As Ordered; -ISOVUE-M 300 61% 15ML VIAL (Q9967) As Ordered ONE; -LIDOCAINE 1% SDV INJ 30 ML VIAL As Ordered ONE; -TRIAMCINOLONE ACETONIDE SUSP 40 MG/ML VIAL (J3301) As Ordered ONE; -diazePAM 5 MG TAB As Ordered ONE; -oxyCODONE 5MG TAB As Ordered ONE
== END ==
LOC: M RAD 08:40
DX: R51 Headache (principal)
CPT/HCPCS: Q9967